=== PATIENT | female | born 1965 | race Caucasian/White ===

== ENCOUNTER 2017-01-29 09:30 | Inpatient (IN) | payer MEDICAID, OTHER ==
--- NOTE | 2017-02-09 20:46 | HP ---
H&P (Free Text) History and Physical: PROCEDURE: Left knee medial compartment arthroplasty. Date of Procedure: 02/19/2017 Physician: Dr. Tae Acevedo CC: Left knee pain. HPI: The patient is a very pleasant 51-year-old female who presents today for history and physical examination prior to undergoing surgery with Dr. Acevedo. In brief, the patient has been suffering from left knee pain due to osteoarthritis for quite some time, and has failed conservative treatment such as nonsteroidal medication. She has elected to undergo a left knee medial compartment arthroplasty by Dr. Justin Acevedo on 02/19/2017. PAST MEDICAL HISTORY: 1) Diabetes type 2. 2) Chronic bronchiolitis. 3) COPD. 4) Hypertension. 5) Elevated cholesterol. 6) Thyroid disease. 7) L5-S1 disk herniation. PAST SURGICAL HISTORY: 1) Tonsils and adenoids. 2) x2. 3) Partial hysterectomy. 4) Appendectomy. 5) Incision and drainage as a child. MEDICATIONS: 1) Lisinopril 20 mg one tablet by mouth daily. 2) Simvastatin 20 mg one tablet by mouth q.h.s. 3) Glipizide 10 mg one tablet by mouth twice daily. 4) Metformin, unknown dosage. 5) Motrin p.r.n. 6) Benadryl p.r.n. 7) Levothyroxine 100 mcg one tablet by mouth daily. 8) Respimat 20/100 mcg/ACT one puff four to six times as needed. 9) Nebulizer p.r.n. ALLERGIES: Penicillin, with a history of "lungs filling with fluid." FAMILY HISTORY: Mother with heart disease and epilepsy. SOCIAL HISTORY: Currently living with her in a home with only one floor. Positive for tobacco use, approximately one pack per day. Negative for alcohol use. ROS: GENERAL: Negative for fevers, chills, night sweats. No history of anesthesia problems. HEENT: Negative for headache, lightheadedness, or syncopal episodes. INTEGUMENT: Negative for abrasions, lesions, open wounds or sores. CARDIOTHORACIC: Negative for chest pain, palpitations, or edema. Positive for hypertension. PULMONARY: Positive for chronic cough. Positive for COPD. GI: Negative for nausea, vomiting, constipation, or GERD. : Negative for nocturia, urinary frequency or urgency, history of UTIs or kidney problems. MUSCULOSKELETAL: Positive for chronic back pain with L5 disk herniation. Positive for left knee pain. NEUROLOGIC: Positive for left leg paresthesias. No history of seizure, stroke or epilepsy. ENDOCRINE: Positive for diabetes. Positive for thyroid disease. HEMATOLOGIC: Negative for easy bruising or anemia. No history of excessive bleeding. No history of DVTs or PE. INFECTIOUS DISEASE: Negative for MRSA, hepatitis or HIV. Vitals: Ht: 61.5" Wt: 200lb Pulse: 80 BP: 163/81 Resp: 17 T: 98.1 Pain Level: 7 BMI: 37.2 PHYSICAL EXAM: GENERAL: Well-appearing, in no acute distress, alert and oriented female appearing older than stated age. HEENT: Normocephalic, atraumatic. EOMI. NECK: Supple. CARDIAC: Regular rate and rhythm. No murmurs, gallops or rubs. No edema bilaterally in lower extremities. PULMONARY: Lungs clear to auscultation bilaterally. No crackles or rhonchi. Minimal wheezing at the lower lobes. ABDOMEN: Soft, nontender, nondistended. Positive obesity. Positive normoactive bowel sounds. Negative CVA tenderness bilaterally. NEUROLOGIC: Alert and oriented x3. Cranial nerves grossly intact. Sensation intact to light touch in bilateral lower extremities; however, with decreased sensation on the left distal to the calf. MUSCULOSKELETAL: Dorsalis pedis pulses 2+ bilaterally. Left leg with range of motion 0-120. No skin breakdown noted. No wounds or open sores. STUDIES: Last x-rays performed at [facility] on 11/14/2016. ASSESSMENT: The patient is a very pleasant 51-year-old female who presents today for history and physical examination prior to undergoing surgery with Dr. Acevedo. The risks and benefits associated with the procedure were discussed with the patient at length, and she signed the surgical risks and complications form. Medications of Colace, Coumadin and Percocet will be sent to the patient' s pharmacy for her to filler picker preoperatively. She had no further questions or concerns. She will be following up with her primary doctor on 02/15/2017 for her preoperative clearance, and will be seen at [facility] today.
[2017-02-19] MEDS ORDERED: Buffered Lidocaine 1% SYRIN* 3 ML/SYR SYRINGE INTRADERM ONE (06:00)
[2017-02-19] MEDS ORDERED: Famotidine IV* 10 MG/ML 2 ML (20 mg) IV ONE (06:00)
[2017-02-19] MEDS ORDERED: Dexamethasone IV* 4 MG/ML 1 ML (4 MG) IV SLOW PU ONE (06:00)
[2017-02-19] MEDS ORDERED: Morphine PF AMP (0.5MG/ML)* 5 MG/10 ML AMP ONE (08:08)
[2017-02-19] MEDS ORDERED: Midazolam* 1 MG/ML 5 ML VIAL (5 MG) ONE (08:08)
[2017-02-19] MEDS ORDERED: fentaNYL* 50 MCG/ML 2 ML VIAL (100 MCG VIAL) ONE ×2 (08:08→13:05)
[2017-02-19] MEDS ORDERED: HYDROmorphone* 1 MG/ML 1 ML SYR ONE ×3 (08:08→11:48)
[2017-02-19] MEDS ORDERED: Propofol* 10 MG/ML 20 ML BTL IV PUSH ONE ×2 (08:12→12:39)
[2017-02-19] MEDS ORDERED: Dexmedetomidine* 200 MCG/2 ML 2 ML VIAL ONE (08:12)
[2017-02-19] MEDS ORDERED: Bupivacaine 0.5% SDV PF* 30 ML VIAL ONE (08:12)
[2017-02-19] MEDS ORDERED: Famotidine IV* 10 MG/ML 2 ML (20 mg) ONE (08:26)
[2017-02-19] MEDS ORDERED: Clindamycin 900 MG IVPREMIX(* 900 MG/50 ML SDV IV ONE (08:26)
[2017-02-19] MEDS ORDERED: Dexamethasone IV* 4 MG/ML 1 ML (4 MG) ONE (08:26)
[2017-02-19] MEDS ORDERED: Levalbuterol 1.25MG/0.5ML NEB ONE ×2 (10:29→13:21)
[2017-02-19] MEDS ORDERED: PROCHLORPERAZINE INJ 5 MG/ML 2 ML VIAL IV PRN ×2 (10:32→12:34)
[2017-02-19] MEDS ORDERED: Levalbuterol 0.63MG/3ML NEB INH PRN (10:32)
[2017-02-19] MEDS ORDERED: Ondansetron INJ* 2 MG/ML VIAL IV PRN ×2 (10:32→12:34)
[2017-02-19] MEDS ORDERED: fentaNYL* 50 MCG/ML 2 ML VIAL (100 MCG VIAL) IV PRN (10:32)
[2017-02-19] MEDS ORDERED: Scopolamine 1.5 mg* PATCH TRANSDERM PRN ×2 (10:32→12:34)
[2017-02-19] MEDS ORDERED: DiMENhydriNATE IV* 50 MG/ML VIAL IV PUSH PRN ×2 (10:32→12:34)
[2017-02-19] MEDS ORDERED: Levalbuterol HFA INHALER* 1 PUFF MDI ONE (11:34)
[2017-02-19] MEDS ORDERED: Meperidine SYRINGE* 50 MG/ML ONE (11:48)
[2017-02-19] MEDS ORDERED: diPHENhydraMINE IV* 50 MG/ML 1 ml VIAL (BENADRYL) IV PRN (12:34)
[2017-02-19] MEDS ORDERED: Naloxone* 0.4 MG/ML 1 ML VIAL IV PRN (12:34)
[2017-02-19] MEDS ORDERED: Nalbuphine* 20 MG/ML 1 ML VIAL IV PRN (12:34)
[2017-02-19] MEDS ORDERED: Acetaminophen TAB* 325 MG PO PRN (13:09)
[2017-02-19] MEDS ORDERED: Bisacodyl SUPP* 10 MG SUPP PR PRN (13:15)
[2017-02-19] MEDS ORDERED: LACTULOSE* 30 ML UDC PO PRN (13:15)
[2017-02-19] MEDS ORDERED: Polyethylene Glycol 3350* 17 GM PACKET PO PRN (13:15)
--- NOTE | 2017-02-19 14:14 | RAD ---
INDICATION: Left medial knee replacement surgery. COMPARISON: There are no prior studies available for comparison. TECHNIQUE: 2 views of the left knee were obtained. FINDINGS: The patient is status post knee replacement surgery. There are prosthesis noted in the medial compartment of the knee. The bones are normal alignment. There is air within the joint space and adjacent soft tissues consistent with the patient's recent surgery. Multiple surgical jesse are present anterior. Joint spaces appear maintained. IMPRESSION: STATUS POST PARTIAL KNEE REPLACEMENT SURGERY.
[2017-02-19] MEDS ORDERED: Dextrose 50% Syringe 50 ML* 25 GM/50 ML SYRINGE IV PUSH PRN (14:18)
[2017-02-19] MEDS ORDERED: Albuterol 2.5 MG/3 ML NEB.SOL* (0.083%) INH PRN (14:23)
[2017-02-19] MEDS ORDERED: Albuterol/Ipratropium NEB.SOL* Albuterol 2.5 MG/Ipratropium 0.5 MG 3 ML INH SCH (15:00)
[2017-02-19] MEDS ORDERED: Nicotine PATCH 21 MG/24 HR* PATCH TRANSDERM SCH (15:00)
[2017-02-19] MEDS ORDERED: Nicotine PATCH 21 MG/24 HR* PATCH ONE (16:28)
[2017-02-19] MEDS ORDERED: Warfarin TAB(*) 4 MG PO ONE (17:00)
[2017-02-19] MEDS ORDERED: Albuterol/Ipratropium RESP(NF) MDI (Combivent Respimat) INH SCH (17:00)
[2017-02-19] MEDS: Nicotine PATCH 21 MG/24 HR* PATCH TRANSDERM SCH (17:31)
[2017-02-19] MEDS: Atorvastatin* 10 MG TAB PO SCH (17:53)
[2017-02-19] MEDS: Insulin LISPRO* 1 UNITS UNIT SUBCUT SCH (17:54)
[2017-02-19] MEDS: Clindamycin 600 MG IVPREMIX(* 600 MG/50 ML SDV IV SCH (18:19)
[2017-02-19] MEDS: oxyCODONE/Acetamin 5/325 MG* TAB PO PRN ×2 (19:40→23:18)
[2017-02-19] MEDS ORDERED: Mometasone/Formoter 200/5 MDI INH SCH (21:00)
[2017-02-19] MEDS: Magnesium Hydroxide LIQ* 30 ML UDC PO SCH (21:38)
[2017-02-19] MEDS: Nicotine Patch Removal NOTE FOLLOW UP SCH (21:38)
[2017-02-19] MEDS: Cyclobenzaprine TAB* 10 MG PO SCH (21:38)
[2017-02-19] MEDS: Docusate CAP* 100 MG PO SCH (21:38)
--- NOTE | 2017-02-19 22:17 | CONS ---
CONSULTATION REPORT: DATE OF CONSULT: 02/19/17 PRIMARY CARE PROVIDER: Dr. Rees. REQUESTING PHYSICIAN FOR CONSULTATION: Dr. Acevedo. REASON FOR MEDICAL CONSULTATION: Medical management of comorbid medical condition. HISTORY OF PRESENT ILLNESS: I refer you to Dr. Acevedo's H and P for further details. In short, Mrs. Jonas is a 51-year-old female patient. She carries a history of GARDENIA, diabetes, COPD, hypertension, hyperlipidemia, hypothyroidism, L5-S1 disk herniation, and neuropathy. She comes in to the orthopedic service today for an elective partial knee replacement. She has been suffering from left knee pain due to osteoarthritis for sometime. She has had failed conservative therapy and she had elected to undergo a left medial compartment arthroplasty with Dr. Acevedo today. She underwent the procedure and the hospitalist service was asked to evaluate postoperatively. She was evaluated in the PACU. She is sitting up on the edge of the bed. She says that she is feeling well. She says she feels hungry and thirsty. She denies having any chest pain. She denies feeling lightheaded. Denies feeling like she is going to faint. She denies having any abdominal discomfort. No chest pain, no shortness of breath. She does state that she cannot move her legs as of yet and has no sensation in her lower extremities. She did receive a spinal. The patient says that her pain otherwise is well controlled. Because of her medical complexity, we were asked to evaluate in consult. PAST MEDICAL HISTORY: Significant for: 1. Diabetes mellitus. 2. COPD. 3. Hypertension. 4. Hyperlipidemia. 5. Hypothyroidism. 6. L5-S1 disk herniation. 7. Neuropathy. PAST SURGICAL HISTORY: 1. She has had a tonsillectomy. 2. Appendectomy. 3. x2. 4. Hysterectomy. HOME MEDICATIONS: According to the list that was provided to us include: 1. Tramadol 50 mg at bedtime as needed. 2. Metformin 500 mg daily. 3. Zocor 40 mg daily. 4. Lisinopril 20 mg daily. 5. Synthroid 50 mg daily. 6. Glipizide 10 mg daily. 7. Prozac 80 mg daily. 8. Flexeril 10 mg at bedtime. 9. Combivent 1 to 2 puffs inhaled 4 times a day. ALLERGIES TO MEDICATIONS: Include PENICILLIN. FAMILY HISTORY: Her mother had a history of a blood clot and diet at the age of 35. Father had a history of cancer, also . SOCIAL HISTORY: She is a pack a day smoker for about 40 years. She does not drink alcohol. Surrogate decision maker is her . REVIEW OF SYSTEMS: There is no documented fever. She denied having any significant weight change. There was no double vision. There is no ear discharge. There is no rhinorrhea, no sore throat, no thyroid enlargement. Denied having any chest pain. There is no orthopnea and no nocturnal dyspnea. There is no abdominal pain. No nausea, no vomiting, no dysuria. No frequency, no seizure, no loss of consciousness, no pruritus, no skin ulcerations. Review of 14 systems completed, all others negative. PHYSICAL EXAM: Reveals vital signs, blood pressure of 95/54 with a pulse 68, respirations 21, O2 sat 98%, temperature 97.3. General: At this time, Mrs. Jonas is a 51-year-old female patient. She is sitting in the PACU bed. She does not appear to be in any acute distress. HEENT: Head is atraumatic and normocephalic. Eyes: EOMs intact. Sclerae anicteric and not pale. Neck: Supple. Throat: Oral mucosa appears to be moist. No oropharyngeal erythema. Heart: Sounds S1 and S2, regular rate and rhythm. No murmurs, rubs, or gallops. Lungs: She did have some coarse breath sounds in the upper lobes. No rales were noted. She had equal diaphragmatic expansion. Abdomen was soft, it was flat and nontender. Bowel sounds hypoactive. Extremities: Pulses 2+ throughout. She can move the upper extremities with 5/5 strength. Her lower extremity, again because of the spinal, she at this point has no movement, no sensation. She does have 2+ pulses throughout and she has no peripheral edema. Neurologically, she is awake, alert, and oriented x3. Her speech is clear. Her tongue is midline. She had no gross focal deficits. Her skin is intact with the exception to the left knee, she does have an incision, which is covered with an Clark dressing. It is clean, dry, and intact. DIAGNOSTIC STUDIES/LAB DATA: Her labs from preop revealed a urine culture that was negative. She has a sodium of 134, potassium 4.2, chloride 99, bicarb 30, BUN 17, creatinine 0.52, glucose 64. AST 10, ALT 12. INR was 0.8. The hemoglobin was 12.9, hematocrit 39, WBC 10.9, platelet count 302. Urinalysis was negative. She had a preop chest x-ray, which showed no active disease. Preop EKG shows a normal sinus rhythm, rate of 67, no ST elevations or T-wave inversions. Old medical records were reviewed. ASSESSMENT AND PLAN: Mrs. Jonas is a 51-year-old female patient coming into the orthopedic service today for an elective left partial knee replacement. We were asked to evaluate in consult. My recommendations at this point are: 1. Status post partial knee replacement. At this point, I will defer management to Dr. Acevedo and his team. 2. Diabetes. We will go ahead and put her on a lispro sliding scale. 3. Chronic obstructive pulmonary disease. At this point, we will need to work with aggressive pulmonary toileting. I am going to put her on q.4 hours while awake DuoNebs and p.r.n. albuterol. She takes Combivent 1 to 2 puffs 4 times a day, so when she is improving, we will get her back on her baseline medications. 4. Hypertension. Her blood pressure is here in the 90 systolically, probably from the spinal. We will hold her meds and restart when able. 5. Hyperlipidemia. Continue with statin therapy. 6. Hypothyroidism. Continue her Synthroid. 7. L5-S1 diskectomy. Follow with her primary. Not an active issue currently. 8. Neuropathy. Continue current medical regimen. 9. History of obstructive sleep apnea. She does not wear a mask at night so I think for the initial 24 hours would like to continue with pulse ox overnight to monitor her. 10. DVT prophylaxis. We will defer to the primary team. 11. Code status, full code. 12. Fluids, electrolytes, and nutrition. She can have consistent carb diet. TIME SPENT: Time spent on the consult 60 minutes, greater than half the time spent [id number] with the patient obtaining my history and physical. Other half the time spent going over the plan of care with the patient and implementing the plan of care. I did discuss the plan of care with my attending, Dr. Lo. She is in agreement. ZANE BUSTILLOS NP CC: Magda Greenberg; Dr. Acevedo * [id number]/CPS #: [id number] [facility]
[2017-02-20] MEDS: Clindamycin 600 MG IVPREMIX(* 600 MG/50 ML SDV IV SCH ×2 (00:41→08:35)
[2017-02-20] MEDS: oxyCODONE/Acetamin 5/325 MG* TAB PO PRN (02:35)
[2017-02-20] MEDS ORDERED: diPHENhydraMINE IV* 50 MG/ML 1 ml VIAL (BENADRYL) IV PRN (03:00)
[2017-02-20] MEDS ORDERED: Ondansetron TAB* 4 MG PO PRN (03:00)
[2017-02-20] MEDS ORDERED: Ondansetron INJ* 2 MG/ML VIAL IV PRN (03:00)
[2017-02-20] MEDS: Morphine INJ* 10 MG/ML 1 ML SYRINGE IV PRN ×6 (03:04→21:21)
[2017-02-20] MEDS: diPHENhydraMINE PO* 25 MG PO PRN ×2 (03:05→21:19)
--- NOTE | 2017-02-20 03:21 | OP ---
DATE OF OPERATION: 02/19/17 - ROOM #346 DATE OF : 61 SURGEON: Justin Acevedo MD ASSISTANTS: 1. Mini Xiong RPA 2. Flakita Mccabe RPA ANESTHESIOLOGIST: Robert Carrasco MD ANESTHESIA: Regional/spinal/sedation. PRE-OP DIAGNOSIS: Osteoarthritis, left knee. POST-OP DIAGNOSIS: Osteoarthritis, left knee. OPERATIVE PROCEDURE: 1. Left knee medical compartment arthroplasty. 2. Patelloplasty. ESTIMATED BLOOD LOSS: Less than 100 cc. COMPLICATIONS: None. HARDWARE: Repicci II, 48 mm femur, 32 x 6.5 mm tibia. INDICATIONS: Ms. Jonas is a 51-year-old female who has a long history of left knee pain. She had small spurs by x-ray, but x-rays were not at all impressive, but an MRI showed essentially complete loss of the cartilage in the medial compartment of her left knee. There was some damage in the patellofemoral compartment, but her main complaint was with weightbearing and medial knee pain. She had been through conservative treatment and I discussed with her that a partial knee arthroplasty should work well to decrease her pain and improve her function. Risks of surgery such as continued pain, scar formation, stiffness, DVT, pulmonary embolism and need to revise to a full knee replacement were some of the risks discussed. She had been declared medically optimized and wished to proceed. DESCRIPTION OF PROCEDURE: The patient was brought to the OR and after a block had been placed in the holding area, spinal anesthesia was introduced. Ag catheter and a tourniquet was placed. Mini Xiong was present for positioning, approach, implantation as well as closure and she was instrumental for the case. It could not have been done without her. Left knee was prepped and then draped. Esmarch was used to exsanguinate the leg and the tourniquet was raised. Midline incision was made coming just to the medial side of the tibial tubercle coming a little bit on towards the medial side of the patella as well. Incision was carried down through skin and subcutaneous fat. Small bleeders encountered were ligated using electrocautery. Extensor mechanism was exposed and a sharp parapatellar arthrotomy was made. Care was taken to not just plunge through proximally in the areas of the intertrochlear notch. Medial side of the fat pad was sharply excised. It could be seen where she was specifically worn on the weightbearing surface of the distal femur. Small sagittal saw was used to resect the posterior condyle and approximately 7 to 8 mm was taken with this. A small corner of the patella was also taken. So, patelloplasty was also performed. This way, the spurs would not catch towards the medial side on the medial femoral condyle. Meniscus was then sharply excised and a 4 mm robin was used to create a recess in the proximal tibia for the tibial component. Coming back and forth frequently to adjust the depths and to make sure that I was not going too deep, the area was burred out. Once I thought that I had a nice recess, attention was turned to the tibia. Femur was sized and the 48 seemed to fit best. Spurs were rongeured off the medial side of the tibia and medial side of the femur and an outline was made and the robin was used to create a recess for the femoral component as well. Once the recess appeared to be adequate, femoral guide was impacted and then pinned into place. Doa hole was then drilled. Guide was removed and trial was then placed. It could be seen where I needed to impact a little bit more proximally to make the transition smooth from the intracondylar notch to the medial femoral condyle. Once this was smooth, however, this looked quite good. Sliding the tibia in however was quite difficult and tibia was then recessed a little bit more. Tibial trial was then placed and she seemed to go quite nicely. The knee came smoothly into the flexion and extension and she had a little bit of wobble to the knee, so I do not believe that she was over-stuffed on the medial side. She was in valgus before surgery and still was in valgus with the trial components in. Trial instrumentation was removed and the knee was copiously pulse lavaged. Cement was being prepared. Tibia and femur were both cemented into place and excess cement was removed. Cement was allowed to harden and once the cement had hardened, osteotome was used to remove some of the extruded cement from the femoral side. With flexion and extension, the femoral component tracked nicely on the tibia. She had that same little bit of play. Patella also seemed to track quite nicely. The knee was again copiously pulse lavaged and parapatellar arthrotomy was repaired using interrupted #1 Vicryl sutures. Tourniquet was let down and no significant bleeding was encountered. Subcutaneous tissues were reapproximated with 2-0 Vicryl and skin was closed using jesse and sterile dressing and Cryo/Cuff was applied in the OR. The patient was then awake and stable on transfer to the recovery room. [id number]/CPS #: [id number] [facility]
[2017-02-20 05:57] LABS: Hematocrit 34 % (35-47); Hemoglobin 11.1 g/dl (12.0-16.0)
[2017-02-20] MEDS: oxyCODONE TAB* 5 MG TAB PO PRN ×5 (06:01→23:09)
[2017-02-20] MEDS: Levothyroxine TAB* 50 MCG TAB PO SCH (06:01)
[2017-02-20 06:08] LABS: BUN/Creatinine Ratio 26.5 (8-20); Calcium 8.8 mg/dL (8.6-10.3); EGFR African American 169.9 (>60); EGFR Non-African American 132.1 (>60); Potassium 4.3 mmol/L (3.5-5.0)
[2017-02-20] MEDS: Magnesium Hydroxide LIQ* 30 ML UDC PO SCH ×2 (08:34→21:11)
[2017-02-20] MEDS: FLUoxetine CAP* 20 MG PO SCH (08:34)
[2017-02-20] MEDS: Docusate CAP* 100 MG PO SCH ×2 (08:34→21:11)
[2017-02-20] MEDS: Insulin LISPRO* 1 UNITS UNIT SUBCUT SCH ×3 (08:35→17:58)
[2017-02-20] MEDS: Nicotine PATCH 21 MG/24 HR* PATCH TRANSDERM SCH (08:36)
[2017-02-20] MEDS ORDERED: NON FORMULARY MED* (Lisinopril [Prinivil Tab 20 Mg] 20 MG) PO SCH (09:00)
[2017-02-20] MEDS ORDERED: GLIPIZIDE 10 MG PO SCH (09:00)
[2017-02-20] MEDS ORDERED: metFORMIN* 500 MG TAB PO SCH (09:00)
--- NOTE | 2017-02-20 09:12 | PN ---
Progress Note - Progress Note SOAP: Subjective: []Patient seen OOB in chair. c/o of mild numbness medial distal left ankle, denies foot weakness. Denies SOB or CP or dizziness. Cough better. Nebulizer is ordered for today. Objective: [] Vital Signs Temp 98.2 F 02/20/17 07:34 Pulse 78 02/20/17 09:06 Resp 16 02/20/17 09:06 BP 133/71 02/20/17 07:34 Pulse Ox 100 02/20/17 07:34 Intake & Output 02/19/17 02/20/17 02/20/17 18:59 06:59 18:59 Intake Total 2340 2473 Output Total 500 2600 1100 Balance 1840 -127 -1100 Weight 217 lb Intake: IV Fluids 1900 827 LR 1900 827 IVPB 106 Cleocin 106 Oral 440 1540 Output: Ag 500 2600 1100 Laboratory Results - last 24 hr 02/19/17 02/19/17 02/20/17 08:47 17:37 05:07 Hgb Hct INR (Anticoag Therapy) Sodium 130 L Potassium 4.3 Chloride 100 L Carbon Dioxide 25 Anion Gap 5 BUN 13 Creatinine 0.49 L Est GFR ( Amer) 169.9 Est GFR (Non-Af Amer) 132.1 BUN/Creatinine Ratio 26.5 H Glucose 135 H POC Glucose (mg/dL) 171 H 259 H Calcium 8.8 02/20/17 02/20/17 05:08 05:08 Hgb 11.1 L Hct 34 L INR (Anticoag Therapy) 0.94 Sodium Potassium Chloride Carbon Dioxide Anion Gap BUN Creatinine Est GFR ( Amer) Est GFR (Non-Af Amer) BUN/Creatinine Ratio Glucose POC Glucose (mg/dL) Calcium Left knee JERRICA is dry and intact calf NT and soft active DF/PF left ankle mild paresthesia medial distal ankle Assessment: []s/p left medial partial knee replacement POD #1 Plan: []PT/OT WBAT LLE Coumadin w heparin bridge 8 mg today Home
--- NOTE | 2017-02-20 11:59 | PN ---
Subjective Date of Service: 02/20/17 Interval History: This is a 51 yo female with an extensive medical hx who presented for an elective partial R knee replacement. Hospitalist group is following for management of chronic medical conditions. Patient reports no acute complaints this am apart from R knee pain. Denies SOB , CP, abd pain, n/v. Objective Active Medications: Acetaminophen (Tylenol Tab*) 650 mg PO Q4H PRN PRN Reason: mild pain or fever Albuterol (Ventolin 2.5 Mg/3 Ml Neb.May*) 2.5 mg INH Q2H PRN PRN Reason: SOB/WHEEZING Last Admin: 02/20/17 09:00 Dose: 2.5 mg Atorvastatin Calcium (Lipitor*) 10 mg PO QPM [facility] Last Admin: 02/19/17 17:53 Dose: 10 mg Bisacodyl (Dulcolax Supp*) 10 mg SD DAILY PRN PRN Reason: constipation Cyclobenzaprine HCl (Flexeril Tab*) 10 mg PO BEDTIME [facility] Last Admin: 02/19/17 21:38 Dose: 10 mg Dextrose (D50w Syringe 50 Ml*) 12.5 gm IV PUSH .FOR FS < 60 - SS PRN PRN Reason: FS < 60 Diphenhydramine HCl (Benadryl Iv*) 12.5 mg IV Q6H PRN PRN Reason: PRURITIS Diphenhydramine HCl (Benadryl Po*) 25 mg PO Q6H PRN PRN Reason: INSOMNIA Last Admin: 02/20/17 03:05 Dose: 25 mg Docusate Sodium (Colace Cap*) 100 mg PO BID [facility] Last Admin: 02/20/17 08:34 Dose: 100 mg Fluoxetine HCl (Prozac Cap*) 80 mg PO DAILY [facility] Last Admin: 02/20/17 08:34 Dose: 80 mg Heparin Sodium (Porcine) (Heparin Vial(*)) 5,000 units SUBCUT Q8HR [facility] Lactated Ringer's (Lactated Ringers 1000 Ml Bag*) 1,000 mls @ 100 mls/hr IV PER RATE [facility] Last Admin: 02/20/17 02:36 Dose: 100 mls/hr Insulin Human Lispro (Humalog*) 0 units SUBCUT AC [facility] PRN Reason: Protocol Last Admin: 02/20/17 08:35 Dose: 2 units Lactulose (Lactulose*) 30 ml PO Q6H PRN PRN Reason: constipation Levothyroxine Sodium (Synthroid Tab*) 50 mcg PO 0600 [facility] Last Admin: 02/20/17 06:01 Dose: 50 mcg Magnesium Hydroxide (Milk Of Magnesia Liq*) 30 ml PO BID [facility] Last Admin: 02/20/17 08:34 Dose: 30 ml Morphine Sulfate (Morphine Inj (Syringe)*) 5 mg IV Q2H PRN PRN Reason: PAIN Last Admin: 02/20/17 08:34 Dose: 5 mg Nicotine (Nicotine Patch 21 Mg/24 Hr*) 1 patch TRANSDERM 0800 [facility] Last Admin: 02/20/17 08:36 Dose: 1 patch Ondansetron HCl (Zofran Inj*) 4 mg IV Q6H PRN PRN Reason: nausea Ondansetron HCl (Zofran Tab*) 4 mg PO Q6H PRN PRN Reason: NAUSEA Oxycodone HCl (Roxycodone Tab*) 10 mg PO Q4H PRN PRN Reason: breakthrough pain Last Admin: 02/20/17 10:35 Dose: 10 mg Oxycodone/Acetaminophen (Percocet 5/325 Tab*) 1 tab PO Q3H PRN PRN Reason: PAIN - MODERATE Pharmacy Profile Note (Scopolomine Patch Remove*) 1 note PATCH OFF Q72H PRN PRN Reason: nausea Pharmacy Profile Note (Nicotine Patch Removal Note*) 1 note FOLLOW UP 2100 [facility] Last Admin: 02/19/17 21:38 Dose: 1 note Pharmacy Profile Note (Coumadin Daily Reminder*) 0 note FOLLOW UP 1700 [facility] Polyethylene Glycol/Electrolytes (Miralax*) 17 gm PO DAILY PRN PRN Reason: Constipation Scopolamine (Transderm-Scop 1.5 Mg Patch*) 1 patch TRANSDERM Q72H PRN PRN Reason: nausea Warfarin Sodium (Coumadin Tab(*)) 8 mg PO ONCE@1700 ONE PRN Reason: Protocol Stop: 02/20/17 17:01 Vital Signs: Temp Pulse Resp BP Pulse Ox 98.2 F 78 16 133/71 100 02/20/17 07:34 02/20/17 09:06 02/20/17 10:35 02/20/17 07:34 02/20/17 08:00 Appearance: Well appearing, in NAD Respiratory: Symmetrical Chest Expansion and Respiratory Effort, - - faint wheeze, no rhonchi or crackles Cardiovascular: NL Sounds; No Murmurs; No JVD, RRR Extremities: - - trace bilateral LE edema Skin: No Rash or Ulcers Neurological: Alert and Oriented x 3 Result Diagrams: 02/20/17 05:08 02/20/17 05:07 Assess/Plan/Problems-Billing Assessment: This is a 51 yo female with GARDENIA non-compliant with CPAP, COPD, DM, HTN, HLD, hypothyroidism and prior lumbar disc herniation with chronic neuropathy who underwent elective partial R knee replacement with Dr Acevedo 02/19. Hospitalist group has been consulted for medical co-management - Patient Problems (1) Status post right partial knee replacement Comment: POD #1 management per ortho (2) COPD (chronic obstructive pulmonary disease) Comment: No acute exacerbation Cont home inhaled therapy (3) GARDENIA (obstructive sleep apnea) Comment: Non-compliant with CPAP (4) Diabetes Comment: Non-insulin dependent Holding metformin/glipizide post-op Manage with SS Humalog (5) HTN (hypertension) Comment: Normotensive Plan to resume lisinopril tomorrow am (6) HLD (hyperlipidemia) (7) Hypothyroidism Comment: Cont levothyroxine (8) Lumbar radiculopathy Comment: Cont prn flexeril (9) DVT prophylaxis Comment: Lovenox bridge to Coumadin per ortho Status and Disposition: Discharge planning per ortho. No acute medical concerns. Hospitalists will cont to follow
[2017-02-20] MEDS ORDERED: Warfarin TAB(*) 4 MG PO ONE (17:00)
[2017-02-20] MEDS: Atorvastatin* 10 MG TAB PO SCH (17:47)
[2017-02-20] MEDS: Cyclobenzaprine TAB* 10 MG PO SCH (21:11)
[2017-02-20] MEDS: Heparin VIAL(*) 5000 UNITS/ML VIAL (FIVE THOUSAND) SUBCUT SCH (21:13)
[2017-02-20] MEDS: Nicotine Patch Removal NOTE FOLLOW UP SCH (21:13)
[2017-02-21] MEDS: Morphine INJ* 10 MG/ML 1 ML SYRINGE IV PRN ×6 (01:34→23:41)
[2017-02-21] MEDS: oxyCODONE TAB* 5 MG TAB PO PRN ×5 (03:54→22:34)
[2017-02-21] MEDS: Levothyroxine TAB* 50 MCG TAB PO SCH (05:44)
[2017-02-21] MEDS: Heparin VIAL(*) 5000 UNITS/ML VIAL (FIVE THOUSAND) SUBCUT SCH ×3 (05:46→22:36)
[2017-02-21 05:50] LABS: Hematocrit 35 % (35-47); Hemoglobin 11.8 g/dl (12.0-16.0)
[2017-02-21] MEDS: oxyCODONE/Acetamin 5/325 MG* TAB PO PRN (07:21)
[2017-02-21] MEDS: Insulin LISPRO* 1 UNITS UNIT SUBCUT SCH ×3 (07:22→17:42)
[2017-02-21] MEDS: Nicotine PATCH 21 MG/24 HR* PATCH TRANSDERM SCH (08:46)
[2017-02-21] MEDS: Lisinopril TAB* 10 MG PO SCH (08:47)
[2017-02-21] MEDS: Magnesium Hydroxide LIQ* 30 ML UDC PO SCH ×2 (08:47→21:27)
[2017-02-21] MEDS: Docusate CAP* 100 MG PO SCH ×2 (08:47→21:23)
[2017-02-21] MEDS: FLUoxetine CAP* 20 MG PO SCH (09:19)
--- NOTE | 2017-02-21 12:14 | PN ---
Subjective Date of Service: 02/21/17 Interval History: Patient offers no acute complaints. No cough, SOB, abdominal pain, n/v. Pain control is adequate. Objective Active Medications: Acetaminophen (Tylenol Tab*) 650 mg PO Q4H PRN PRN Reason: mild pain or fever Albuterol (Ventolin 2.5 Mg/3 Ml Neb.May*) 2.5 mg INH Q2H PRN PRN Reason: SOB/WHEEZING Last Admin: 02/20/17 09:00 Dose: 2.5 mg Atorvastatin Calcium (Lipitor*) 10 mg PO QPM [facility] Last Admin: 02/20/17 17:47 Dose: 10 mg Bisacodyl (Dulcolax Supp*) 10 mg DC DAILY PRN PRN Reason: constipation Cyclobenzaprine HCl (Flexeril Tab*) 10 mg PO BEDTIME [facility] Last Admin: 02/20/17 21:11 Dose: 10 mg Dextrose (D50w Syringe 50 Ml*) 12.5 gm IV PUSH .FOR FS < 60 - SS PRN PRN Reason: FS < 60 Diphenhydramine HCl (Benadryl Iv*) 12.5 mg IV Q6H PRN PRN Reason: PRURITIS Diphenhydramine HCl (Benadryl Po*) 25 mg PO Q6H PRN PRN Reason: INSOMNIA Last Admin: 02/20/17 21:19 Dose: 25 mg Docusate Sodium (Colace Cap*) 100 mg PO BID [facility] Last Admin: 02/21/17 08:47 Dose: 100 mg Fluoxetine HCl (Prozac Cap*) 80 mg PO DAILY [facility] Last Admin: 02/21/17 09:19 Dose: 80 mg Heparin Sodium (Porcine) (Heparin Vial(*)) 5,000 units SUBCUT Q8HR [facility] Last Admin: 02/21/17 05:46 Dose: 5,000 units Lactated Ringer's (Lactated Ringers 1000 Ml Bag*) 1,000 mls @ 100 mls/hr IV PER RATE [facility] Last Admin: 02/20/17 02:36 Dose: 100 mls/hr Insulin Human Lispro (Humalog*) 0 units SUBCUT AC [facility] PRN Reason: Protocol Last Admin: 02/21/17 07:22 Dose: Not Given Lactulose (Lactulose*) 30 ml PO Q6H PRN PRN Reason: constipation Levothyroxine Sodium (Synthroid Tab*) 50 mcg PO 0600 [facility] Last Admin: 02/21/17 05:44 Dose: 50 mcg Lisinopril (Prinivil Tab*) 20 mg PO DAILY [facility] Last Admin: 02/21/17 08:47 Dose: 20 mg Magnesium Hydroxide (Milk Of Magnesia Liq*) 30 ml PO BID [facility] Last Admin: 02/21/17 08:47 Dose: 30 ml Morphine Sulfate (Morphine Inj (Syringe)*) 5 mg IV Q2H PRN PRN Reason: PAIN Last Admin: 02/21/17 11:32 Dose: 5 mg Nicotine (Nicotine Patch 21 Mg/24 Hr*) 1 patch TRANSDERM 0800 [facility] Last Admin: 02/21/17 08:46 Dose: 1 patch Ondansetron HCl (Zofran Inj*) 4 mg IV Q6H PRN PRN Reason: nausea Ondansetron HCl (Zofran Tab*) 4 mg PO Q6H PRN PRN Reason: NAUSEA Oxycodone HCl (Roxycodone Tab*) 10 mg PO Q4H PRN PRN Reason: breakthrough pain Last Admin: 02/21/17 08:47 Dose: 10 mg Oxycodone/Acetaminophen (Percocet 5/325 Tab*) 1 tab PO Q3H PRN PRN Reason: PAIN - MODERATE Last Admin: 02/21/17 07:21 Dose: 1 tab Pharmacy Profile Note (Scopolomine Patch Remove*) 1 note PATCH OFF Q72H PRN PRN Reason: nausea Pharmacy Profile Note (Nicotine Patch Removal Note*) 1 note FOLLOW UP 2100 [facility] Last Admin: 02/20/17 21:13 Dose: 1 note Pharmacy Profile Note (Coumadin Daily Reminder*) 0 note FOLLOW UP 1700 [facility] Last Admin: 02/20/17 18:17 Dose: 1 note Polyethylene Glycol/Electrolytes (Miralax*) 17 gm PO DAILY PRN PRN Reason: Constipation Scopolamine (Transderm-Scop 1.5 Mg Patch*) 1 patch TRANSDERM Q72H PRN PRN Reason: nausea Warfarin Sodium (Coumadin Tab(*)) 10 mg PO ONCE@1700 ONE PRN Reason: Protocol Stop: 02/21/17 17:01 Vital Signs: Temp Pulse Resp BP Pulse Ox 97.9 F 70 16 140/75 98 02/21/17 07:33 02/21/17 07:33 02/21/17 11:32 02/21/17 07:33 02/21/17 07:33 Appearance: Well appearing, in NAD Ears/Nose/Mouth/Throat: NL Teeth, Lips, Gums Neck: NL Appearance and Movements; NL JVP Respiratory: Symmetrical Chest Expansion and Respiratory Effort, Clear to Auscultation Cardiovascular: NL Sounds; No Murmurs; No JVD, RRR Extremities: - - trace LE edema Skin: No Rash or Ulcers Neurological: Alert and Oriented x 3 Result Diagrams: 02/21/17 05:20 02/20/17 05:07 Assess/Plan/Problems-Billing Assessment: This is a 51 yo female with GARDENIA non-compliant with CPAP, COPD, DM, HTN, HLD, hypothyroidism and prior lumbar disc herniation with chronic neuropathy who underwent elective partial R knee replacement with Dr Acevedo 02/19. Hospitalist group has been consulted for medical co-management - Patient Problems (1) Status post right partial knee replacement Comment: POD #2 management per ortho (2) COPD (chronic obstructive pulmonary disease) Comment: No acute exacerbation Cont home inhaled therapy (3) GARDENIA (obstructive sleep apnea) Comment: Non-compliant with CPAP (4) Diabetes Comment: Non-insulin dependent Holding metformin/glipizide post-op Manage with SS Humalog (5) HTN (hypertension) Comment: Normotensive Lisinopril has been restarted (6) HLD (hyperlipidemia) (7) Hypothyroidism Comment: Cont levothyroxine (8) Lumbar radiculopathy Comment: Cont prn flexeril (9) DVT prophylaxis Comment: Lovenox bridge to Coumadin per ortho Status and Disposition: Discharge planning per ortho. No acute medical concerns. Hospitalists will cont to follow
[2017-02-21] MEDS ORDERED: Warfarin TAB(*) 10 MG PO ONE (17:00)
[2017-02-21] MEDS: Atorvastatin* 10 MG TAB PO SCH (17:36)
[2017-02-21] MEDS: Cyclobenzaprine TAB* 10 MG PO SCH (21:23)
[2017-02-21] MEDS: Nicotine Patch Removal NOTE FOLLOW UP SCH (21:30)
[2017-02-22] MEDS: oxyCODONE TAB* 5 MG TAB PO PRN ×2 (03:39→08:12)
[2017-02-22 05:44] LABS: Hematocrit 37 % (35-47); Hemoglobin 12.2 g/dl (12.0-16.0)
[2017-02-22] MEDS: Levothyroxine TAB* 50 MCG TAB PO SCH (06:03)
[2017-02-22] MEDS: Heparin VIAL(*) 5000 UNITS/ML VIAL (FIVE THOUSAND) SUBCUT SCH (06:03)
[2017-02-22] MEDS: oxyCODONE/Acetamin 5/325 MG* TAB PO PRN (06:06)
[2017-02-22 07:49] VITALS: BP 145/79
[2017-02-22] MEDS: Magnesium Hydroxide LIQ* 30 ML UDC PO SCH (07:52)
[2017-02-22] MEDS: Insulin LISPRO* 1 UNITS UNIT SUBCUT SCH (07:58)
[2017-02-22] MEDS: FLUoxetine CAP* 20 MG PO SCH (07:59)
[2017-02-22] MEDS: Nicotine PATCH 21 MG/24 HR* PATCH TRANSDERM SCH (07:59)
[2017-02-22] MEDS: Lisinopril TAB* 10 MG PO SCH (08:00)
[2017-02-22] MEDS: Docusate CAP* 100 MG PO SCH (08:00)
--- NOTE | 2017-02-22 09:19 | PN ---
Progress Note - Progress Note SOAP: Subjective: []Patient seen OOB, dressed. Ready to go home. She has her Coumadin, Colace and Percocet Rx already. Objective: [] Vital Signs Temp 97.9 F 02/22/17 07:36 Pulse 86 02/22/17 07:36 Resp 20 02/22/17 08:12 BP 145/79 02/22/17 07:36 Pulse Ox 94 02/22/17 08:00 Intake & Output 02/21/17 02/22/17 02/22/17 18:59 06:59 18:59 Intake Total 920 1465 360 Output Total 800 2450 Balance 120 -985 360 Intake: Oral 920 1465 360 Output: Urine 800 2450 Laboratory Results - last 24 hr 02/21/17 02/22/17 02/22/17 12:15 05:01 05:01 Hgb 12.2 Hct 37 INR (Anticoag Therapy) 1.43 H POC Glucose (mg/dL) 121 H Left knee wound is benign calf NT and soft +DF/PF Assessment: []s/p LTK POD #3 Plan: []Discharge home today w VNS 6mg Coumadin tonight Follow up in 3-[address] Acevedo (has appointment)
[2017-02-22] MEDS ORDERED: Scopolomine PATCH Remove* 1 NOTE MISC PATCH OFF ONE (10:32)
--- NOTE | 2017-02-22 10:34 | DS ---
DATE OF ADMISSION: 02/19/2017. DATE OF DISCHARGE: 02/22/2017. ATTENDING PHYSICIAN: Dr. Justin Acevedo. (dictated by JEFF Abbasi) ADMISSION DIAGNOSES: Osteoarthritis left knee. DISCHARGE DIAGNOSIS: Osteoarthritis left knee. SURGERY PERFORMED: Left knee medial compartment arthroplasty, patelloplasty. HOSPITAL COURSE: The patient is a 51-year-old female with a long-standing history of medial sided left knee pain. Her MRI revealed complete loss of the cartilage in the medial compartment of her left knee. She complained of significant pain with weightbearing in the medial aspect of her knee. She failed conservative management and it was felt that medial compartment knee arthroplasty would be beneficial. She elected to proceed and was taken to the operating room under the care of Dr. Justin Acevedo on the date of 02/19/2017. She tolerated the aforementioned procedure well and left the operating room in stable condition. Postoperatively, she progressed satisfactorily with her physical therapy and occupational therapy goals. She had no acute postoperative complications. She was anticoagulated on Coumadin with a Heparin bridge. She was found to be medically and orthopedically stable for discharge to home on the date of 02/22/17. CONDITION ON DISCHARGE: She is afebrile. Her vital signs are stable. Her left knee incision is healing without evidence of infection. Her calf was soft and nontender. Her neurovascular status is grossly intact. PLAN: Discharge to home with visiting nursing services. She will continue on the Coumadin. She is instructed to take 6 mg of Coumadin today, , February 22; 2 mg February 23; 2 mg February 24; and 2 mg February 25. She is scheduled to have a blood draw on February 26, with subsequent Coumadin dosages to follow. She has her Percocet prescription 5/325, one tablet q.3 hours prn pain and the Colace medication already at home. She has her follow- up appointment scheduled at the end of February at about the three to four week kevin with Dr. Acevedo. Sandra will be removed at about 10 to 12 days postoperatively by visiting home nursing services. The patient was instructed to call the office if she were to develop fever, chills, increased knee pain, redness, warmth, calf swelling or pain. JEFF ABBASI [id number]/[facility] #: [id number] [place]
[2017-02-22] MEDS ORDERED: Scopolomine PATCH Remove* 1 NOTE MISC PATCH OFF PRN (12:34)
--- NOTE | 2017-02-22 15:13 | PN ---
Subjective Date of Service: 02/22/17 Interval History: Patient was discharged by orthopedic service this am. Reviewed nursing notes, labs and vitals from overnight. No concerns. Objective Active Medications: Home Medications Medication Instructions Recorded Confirmed Type Albuterol/Ipratropium RESP(NF) 1 - 2 inhaler INH QID 02/07/17 02/19/17 History [Combivent Respimat (NF)] Cyclobenzaprine TAB* [Flexeril 10 10 mg PO BEDTIME 02/07/17 02/19/17 History MG TAB*] Fluoxetine HCl 80 mg PO DAILY 02/07/17 02/19/17 History Glipizide [Glucotrol] 10 mg PO DAILY 02/07/17 02/19/17 History Levothyroxine TAB* 50 mcg PO DAILY 02/07/17 02/19/17 History Lisinopril [Prinivil TAB 20 mg] 20 mg PO DAILY 02/07/17 02/19/17 History Simvastatin [Zocor 40 MG (NF)] 40 mg PO QPM 02/07/17 02/19/17 History metFORMIN* [Glucophage 500 MG TAB 500 mg PO DAILY 02/07/17 02/19/17 History *] traMADol TAB* [Ultram*] 50 mg PO BEDTIME PRN 02/07/17 02/19/17 History Docusate CAP* [Colace Cap*] 100 mg PO BID cap 02/22/17 Rx oxyCODONE/Acetamin 5/325 MG* 1 tab PO Q3H PRN #0 tab MDD 6 02/22/17 Rx [Percocet 5/325 TAB*] Vital Signs: Temp Pulse Resp BP Pulse Ox 97.9 F 100 16 145/79 96 02/22/17 07:36 02/22/17 11:05 02/22/17 11:05 02/22/17 07:36 02/22/17 11:05 Appearance: Exam not completed Result Diagrams: 02/22/17 05:01 02/20/17 05:07 Assess/Plan/Problems-Billing Assessment: This is a 51 yo female with GARDENIA non-compliant with CPAP, COPD, DM, HTN, HLD, hypothyroidism and prior lumbar disc herniation with chronic neuropathy who underwent elective partial R knee replacement with Dr Acevedo 02/19. Hospitalist group has been consulted for medical co-management - Patient Problems (1) Status post right partial knee replacement Comment: POD #3 discharged per ortho (2) COPD (chronic obstructive pulmonary disease) Comment: No acute exacerbation Cont home inhaled therapy (3) GARDENIA (obstructive sleep apnea) Comment: Non-compliant with CPAP (4) Diabetes Comment: Non-insulin dependent Holding metformin/glipizide post-op Manage with SS Humalog (5) HTN (hypertension) Comment: Normotensive Lisinopril has been restarted (6) HLD (hyperlipidemia) (7) Hypothyroidism Comment: Cont levothyroxine (8) Lumbar radiculopathy Comment: Cont prn flexeril (9) DVT prophylaxis Comment: Lovenox bridge to Coumadin per ortho Status and Disposition: Discharged by ortho. No acute medical concerns. No changes made to home medications
== END 2017-02-22 11:20 | disposition home health service (06) | DRG 302 ==
LOC: INTOOBSV 02-19 08:27 → AA 02-19 08:27 → SSU 02-19 16:19 → OBSVTOIN 02-20 15:00
PROVIDERS: ADMIT Orthopaedic Surgery; ATTEND Orthopaedic Surgery
PROC: 0SRD0L9 Replacement of Left Knee Joint with Medial Unicondylar Synthetic Substitute, Cemented, Open Approach (ICD-10-PCS; principal; 2017-02-20)
PROC: 0QQF0ZZ Repair Left Patella, Open Approach (ICD-10-PCS; 2017-02-20)
DX: M17.12 Unilateral primary osteoarthritis, left knee (principal); E11.40 Type 2 diabetes mellitus with diabetic neuropathy, unspecified; J44.9 Chronic obstructive pulmonary disease, unspecified; I10 Essential (primary) hypertension; E78.00 Pure hypercholesterolemia, unspecified; M51.27 Other intervertebral disc displacement, lumbosacral region; F17.210 Nicotine dependence, cigarettes, uncomplicated; G89.29 Other chronic pain; M76.9 Unspecified enthesopathy, lower limb, excluding foot; S83.242A Other tear of medial meniscus, current injury, left knee, initial encounter; X58.XXXA Exposure to other specified factors, initial encounter; G47.33 Obstructive sleep apnea (adult) (pediatric); E78.5 Hyperlipidemia, unspecified; E03.9 Hypothyroidism, unspecified; M54.16 Radiculopathy, lumbar region; E66.9 Obesity, unspecified; F32.9 Major depressive disorder, single episode, unspecified; Z90.711 Acquired absence of uterus with remaining cervical stump; Z88.0 Allergy status to penicillin; Z82.49 Family history of ischemic heart disease and other diseases of the circulatory system; Z82.0 Family history of epilepsy and other diseases of the nervous system; Y92.9 Unspecified place or not applicable; Z91.19 Patient's noncompliance with other medical treatment and regimen; Z80.9 Family history of malignant neoplasm, unspecified; Z68.37 Body mass index [BMI] 37.0-37.9, adult; Z79.01 Long term (current) use of anticoagulants
CPT/HCPCS: 36415; 80048; 85014; 85018; 85610; 88305; 88311; 94640; 94760; 99406; A9270-GY; C1776; J1100; J1170; J1200; J1644; J2250; J2270; J2704; J3010

== ENCOUNTER 2018-10-28 06:43 | Inpatient (IN) | payer MEDICARE, MEDICAID ==
[~2018-10-28 06:43] MED LIST: Acetaminophen TAB* 325 MG ONE; Acetaminophen TAB* 325 MG PO ONE; Buffered Lidocaine 0.9% SYRIN* 5 ML/SYR SYRINGE INTRADERM ONE; Clindamycin 900 MG/D5W BAG(*) 900 MG/50 ML BAG IVPB ONE; Famotidine IV* 10 MG/ML 2 ML (20 mg) IV ONE; Famotidine IV* 10 MG/ML 2 ML (20 mg) ONE; Lactated Ringers 1000 ML Bag* 1,000 ML IV SCH; Levalbuterol 0.63MG/3ML NEB* UNIT OF USE INH ONE; celeCOXIB CAP* 200 MG PO ONE
[2018-10-28] MEDS ORDERED: celeCOXIB CAP* 100 MG ONE (06:59)
[2018-10-28] MEDS ORDERED: Midazolam* 1 MG/ML 5 ML VIAL (5 MG) ONE (07:00)
[2018-10-28] MEDS ORDERED: Ondansetron INJ* 2 MG/ML VIAL ONE (07:00)
[2018-10-28] MEDS ORDERED: ROPIVACAINE 5 MG/ML 30 ML BTL (0.5%) ONE (07:00)
[2018-10-28] MEDS ORDERED: Lidocaine 2% PF * 5 ML VIAL ONE ×2 (07:00→08:28)
[2018-10-28] MEDS ORDERED: fentaNYL* 50 MCG/ML 2 ML VIAL (100 MCG VIAL) ONE (07:00)
[2018-10-28] MEDS ORDERED: Propofol* 10 MG/ML 20 ML BTL ONE (07:00)
[2018-10-28] MEDS ORDERED: Dexamethasone IV* 4 MG/ML 1 ML (4 MG) ONE (07:00)
[2018-10-28] MEDS ORDERED: KETAMINE HCL* 50 MG/ML 10 ML VIAL ONE (07:00)
[2018-10-28] MEDS ORDERED: Bupivacaine 0.5% SDV PF* 30ML VIAL ONE (07:05)
[2018-10-28] MEDS ORDERED: Tranexamic Acid 1,000 MG in NS 0.9% 50 ML IV ONE (08:00)
[2018-10-28] MEDS ORDERED: Bupivacaine 0.25% EPI 200,000* 30 ML SDV ONE ×3 (08:25→09:31)
[2018-10-28] MEDS ORDERED: Propofol* 500 MG/50 ML BTL ONE (08:28)
[2018-10-28] MEDS ORDERED: fentaNYL* 50 MCG/ML 2 ML VIAL (100 MCG VIAL) IV PRN (09:39)
[2018-10-28] MEDS ORDERED: Naloxone* 0.4 MG/ML 1 ML VIAL IV PRN (09:39)
[2018-10-28] MEDS ORDERED: Ondansetron INJ* 2 MG/ML VIAL IV PRN ×2 (09:39→10:45)
[2018-10-28] MEDS ORDERED: Levalbuterol 0.63MG/3ML NEB* UNIT OF USE INH PRN (09:43)
[2018-10-28] MEDS ORDERED: Metoprolol Tartrate IV* 1 MG/ML 5 ML VIAL ONE (10:06)
[2018-10-28] MEDS ORDERED: Cyclobenzaprine TAB* 10 MG PO PRN (10:45)
[2018-10-28] MEDS ORDERED: diPHENhydraMINE IV* 50 MG/ML 1 ml VIAL (BENADRYL) IV PRN (10:45)
[2018-10-28] MEDS ORDERED: oxyCODONE/Acetamin 5/325 MG* TAB PO PRN (10:45)
[2018-10-28] MEDS ORDERED: traMADol TAB* 50 MG PO PRN (10:45)
[2018-10-28] MEDS ORDERED: Magnesium Hydroxide LIQ* 30 ML UDC PO PRN (10:45)
[2018-10-28] MEDS ORDERED: diPHENhydraMINE PO* 25 MG PO PRN (10:45)
[2018-10-28] MEDS ORDERED: Levalbuterol 1.25MG/0.5ML NEB ONE (10:47)
[2018-10-28] MEDS ORDERED: Polyethylene Glycol 3350* 17 GM PACKET PO PRN (10:51)
[2018-10-28] MEDS ORDERED: Bisacodyl SUPP* 10 MG SUPP PR PRN (10:51)
[2018-10-28] MEDS ORDERED: Levalbuterol 0.63MG/3ML NEB* UNIT OF USE INH ONE (10:56)
[2018-10-28] MEDS ORDERED: Clindamycin 600 MG IVPREMIX(* 600 MG/50 ML SDV IV SCH (11:00)
[2018-10-28] MEDS ORDERED: Gabapentin TAB(NF) 600 MG PO SCH (13:00)
--- NOTE | 2018-10-28 13:46 | CONSULT ---
Subjective Date of Service: 10/28/18 Interval History: Morenita is a 53 yo female, seen in PACU following left total knee revision. She is sleepy but denies any pain concerns at this time. Able to follow commands. No concerns prior to admission. Family History: Findings - heart disease Social History: Findings - 30 year smoking hx, lives with Past Medical History: Findings - hypothyroidism, DM2, HLD, opioid dependence, nicotine dependence, COPD, depression, anxiety, cervical and lumbar radiculopathy, fibromyalgia, chronic pain, OA - bilateral knees Review of Systems - Measurements Intake and Output: Intake and Output Last 24 Hours 10/26/18 10/27/18 10/28/18 10/29/18 06:59 06:59 06:59 06:59 Intake Total 2200 Output Total 600 Balance 1600 Weight 199 lb Intake: IV Fluids 2200 lr 2200 Output: Ag 550 Estimated Blood Loss 50 - Review of Systems Constitutional Symptoms: Negative: Weakness, Fever, Night Sweats Dermatology: Positive: Normal HEENT: Negative: Sinus Problem Eyes: Negative: Change in Vision, Double Vision Thyroid: Positive: Primary Hypothyroidism Pulmonary: Positive: COPD Negative: Wheezing, Respiratory Distress, Shortness of Breath Cardiology: Negative: Chest Pain, Shortness of Breath, Palpitations Gastroenterology: Negative: Abdominal Pain, Nausea, Vomiting Genital - Urinary: Negative: Dysuria, Hematuria Musculoskeletal: Positive: Joint Pain, Joint Stiffness, Arthritis Endocrinology: Positive: Thyroid Problems, Obesity, Diabetes Mellitus Neurology: Positive: Normal Negative: Headache, Dizziness Psychiatry: Positive: Depression, Anxiety Negative: Suicidal Ideation Objective Active Medications: Acetaminophen (Tylenol Tab*) 975 mg PO ONCE ONE Stop: 10/28/18 06:01 Last Admin: 10/28/18 06:54 Dose: 975 mg Acetaminophen (Tylenol Tab*) 975 mg PO Q8H [facility] Albuterol/Ipratropium (Combivent Respimat(Nf)) puff INH QID [facility]; Protocol Bisacodyl (Dulcolax Supp*) 10 mg CO DAILY PRN PRN Reason: constipation Celecoxib (Celebrex Cap*) 200 mg PO ONCE ONE Stop: 10/28/18 06:01 Last Admin: 10/28/18 07:00 Dose: 200 mg Cyclobenzaprine HCl (Flexeril Tab*) 10 mg PO TID PRN PRN Reason: SPASMS Diphenhydramine HCl (Benadryl Iv*) 25 mg IV Q6H PRN PRN Reason: itching Diphenhydramine HCl (Benadryl Po*) 25 mg PO Q6H PRN PRN Reason: INSOMNIA Docusate Sodium (Colace Cap*) 100 mg PO BID [facility] Famotidine (Pepcid Iv*) 20 mg IV ONCE ONE Stop: 10/28/18 06:01 Last Admin: 10/28/18 06:53 Dose: 20 mg Fentanyl Citrate (Fentanyl*) 50 mcg IV Q5M PRN PRN Reason: PAIN - MODERATE Fluoxetine HCl (Fluoxetine Hcl) 40 mg PO QAM [facility] Gabapentin (Neurontin Tab(Nf)) 600 mg PO QID [facility] Heparin Sodium (Porcine) (Heparin Vial(*)) 5,000 units SUBCUT Q12HR [facility] Lactated Ringer's (Lactated Ringers 1000 Ml Bag*) 1,000 mls @ 125 mls/hr IV PER RATE [facility] Last Admin: 10/28/18 06:53 Dose: 125 mls/hr Clindamycin HCl/Dextrose (Cleocin 600 Mg Ivpremix(*) Sdv) 600 mg in 50 mls @ 100 mls/hr IV Q8H [facility] Stop: 10/29/18 03:29 Lactated Ringer's (Lactated Ringers 1000 Ml Bag*) 1,000 mls @ 100 mls/hr IV PER RATE [facility] Levalbuterol HCl (Xopenex 0.63mg/3ml Neb*) 0.63 mg INH ONCE ONE Stop: 10/28/18 06:01 Last Admin: 10/28/18 07:01 Dose: 0.63 mg Levalbuterol HCl (Xopenex 0.63mg/3ml Neb*) 0.63 mg INH ONCE PRN PRN Reason: SOB/WHEEZING Last Admin: 10/28/18 11:04 Dose: 0.63 mg Lidocaine/Sodium Bicarbonate (Buffered Lidocaine 0.9% Syrin*) 0.2 ml INTRADERM ONCE ONE Stop: 10/28/18 06:01 Last Admin: 10/28/18 06:54 Dose: 1 admin Magnesium Hydroxide (Milk Of Magnesia Liq*) 30 ml PO BID [facility] Magnesium Hydroxide (Milk Of Magnesia Liq*) 30 ml PO Q6H PRN PRN Reason: constipation Metformin HCl (Glucophage*) 1,000 mg PO BID [facility] Morphine Sulfate (Morphine Vial*) 2 mg IV Q2H PRN PRN Reason: PAIN Naloxone HCl (Narcan*) 0.08 mg IV Q2M PRN PRN Reason: severe induced resp depression Non-Formulary Medication (Duloxetine Hcl) 90 mg PO QAM [facility] Non-Formulary Medication (Glipizide [Glucotrol]) 10 mg PO QAM [facility] Non-Formulary Medication (Hydrochlorothiazide Tab*) 12.5 mg PO QAM [facility] Non-Formulary Medication (Levothyroxine Tab*) 50 mcg PO QAM [facility] Non-Formulary Medication (Lisinopril [Prinivil Tab 20 Mg]) 20 mg PO QAM [facility] Nystatin (Nystatin Top Powder*) 1 applic TOPICAL TID [facility] Ondansetron HCl (Zofran Inj*) 4 mg IV ONCE PRN PRN Reason: NAUSEA/VOMITING Ondansetron HCl (Zofran Inj*) 4 mg IV Q6H PRN PRN Reason: nausea Oxycodone HCl (Roxycodone Tab*) 10 mg PO Q4H PRN PRN Reason: moderate to severe pain Oxycodone/Acetaminophen (Percocet 5/325 Tab*) 1 tab PO Q3H PRN PRN Reason: PAIN - MODERATE Oxycodone/Acetaminophen (Percocet 5/325 Tab*) 2 tab PO Q3H PRN PRN Reason: PAIN - MODERATE Polyethylene Glycol/Electrolytes (Miralax*) 17 gm PO DAILY PRN PRN Reason: Constipation Simvastatin (Zocor (Nf)) 40 mg PO QPM [facility] Tizanidine HCl (Zanaflex Tab*) 4 mg PO BEDTIME [facility] Tramadol HCl (Ultram*) 50 mg PO Q6H PRN PRN Reason: PAIN Warfarin Sodium (Coumadin Tab(*)) 6 mg PO ONCE@1700 ONE; Protocol Stop: 10/28/18 17:01 Vital Signs - 8 hr 10/28/18 10/28/18 10/28/18 06:26 10:44 10:45 Temperature 97.9 F 98.1 F Pulse Rate 94 90 89 Respiratory 16 13 Rate Blood Pressure 146/85 121/87 (mmHg) O2 Sat by Pulse 95 95 96 Oximetry 10/28/18 10/28/18 10/28/18 10:50 10:55 11:00 Temperature Pulse Rate 90 90 91 Respiratory 15 16 17 Rate Blood Pressure 141/72 151/71 134/79 (mmHg) O2 Sat by Pulse 92 96 92 Oximetry 10/28/18 10/28/18 10/28/18 11:05 11:10 11:15 Temperature Pulse Rate 91 91 92 Respiratory 15 15 26 Rate Blood Pressure 136/70 145/79 139/72 (mmHg) O2 Sat by Pulse 90 92 91 Oximetry 10/28/18 10/28/18 10/28/18 11:20 11:25 11:30 Temperature Pulse Rate 93 90 92 Respiratory 21 15 14 Rate Blood Pressure 140/70 133/74 146/70 (mmHg) O2 Sat by Pulse 95 91 91 Oximetry 10/28/18 10/28/18 10/28/18 11:40 11:45 12:00 Temperature Pulse Rate 91 92 Respiratory 25 16 Rate Blood Pressure 130/74 139/75 (mmHg) O2 Sat by Pulse 94 94 94 Oximetry 10/28/18 10/28/18 10/28/18 12:16 12:30 12:45 Temperature Pulse Rate 90 90 91 Respiratory 26 17 17 Rate Blood Pressure 142/62 130/77 141/73 (mmHg) O2 Sat by Pulse 96 97 97 Oximetry 10/28/18 10/28/18 13:00 13:15 Temperature Pulse Rate 92 91 Respiratory 20 25 Rate Blood Pressure 129/82 145/77 (mmHg) O2 Sat by Pulse 94 95 Oximetry Oxygen Devices in Use Now: Simple Face Mask Appearance: 53 yo female, lying in bed, in NAD; sleepy Eyes: No Scleral Icterus, PERRLA Ears/Nose/Mouth/Throat: Clear Oropharnyx, Mucous Membranes Moist Neck: NL Appearance and Movements; NL JVP Respiratory: Symmetrical Chest Expansion and Respiratory Effort, Clear to Auscultation - diminished Cardiovascular: NL Sounds; No Murmurs; No JVD, RRR Abdominal: NL Sounds; No Tenderness; No Distention Extremities: No Clubbing, Cyanosis Skin: No Rash or Ulcers Neurological: Alert and Oriented x 3, NL Muscle Strength and Tone Lines/Tubes/Other Access: Clean, Dry and Intact Peripheral IV Nutrition: Taking PO's Assessment/Plan - Billing Morenita is a 53 yo female, admitted today for left total knee revision. Plan By Medical Problem: 1. Left total knee revision - POD #0, POC per ortho. Pain management per ortho and anesthesia. PT/OT per protocol. 2. History of opioid dependence - Hold Zubsolv in the acute postoperative period. Resume when appropriate and to maintain adequate pain control. 3. COPD - continue home inhalers of Breo Ellipta and prn albuterol 4. DM2 - hold home glipizide and metformin. Start Lispro SSI with meals. 5. HTN - currently well controlled. Hold HCTZ in post operative period; resume when stable. Continue lisinopril with hold parameters. 6. Hypothyroidism - continue levothyroxine 50 mcg. 7. HLD - Continue simvastatin. 8. Chronic pain - secondary to fibromyalgia and OA. Continue gabapentin, tizanidine in addition to post op pain regimen VTE PPX: Warfarin per ortho Diet: Consistent carbohydrate diet Code Status: Full code Admission Status and Rationale: Inpatient admission s/p orthopedic surgery. Dispo per ortho. Attending: João Ramirez
[2018-10-28] MEDS ORDERED: Dextrose 50% Syringe 50 ML* 25 GM/50 ML SYRINGE IV PUSH PRN (15:22)
[2018-10-28] MEDS: Nystatin TOP POWDER* 15 GM BTL TOPICAL SCH ×2 (15:26→23:12)
[2018-10-28] MEDS: NFT: Albuterol/Ipratropium RESP(NF) MDI (Combivent Respimat) INH SCH ×3 (15:54→21:48)
[2018-10-28] MEDS: Acetaminophen TAB* 325 MG PO SCH (15:59)
[2018-10-28] MEDS: oxyCODONE/Acetamin 5/325 MG* TAB PO PRN (15:59)
[2018-10-28] MEDS: Morphine VIAL* 4 MG/ML VIAL (1 ml vial) IV PRN ×2 (16:29→22:30)
[2018-10-28] MEDS: Lactated Ringers 1000 ML Bag* 1,000 ML IV SCH (16:33)
[2018-10-28] MEDS: Clindamycin 600 MG IVPREMIX(* 600 MG/50 ML SDV IV SCH (16:36)
[2018-10-28] MEDS: Gabapentin CAP(*) 300 MG PO SCH ×2 (16:38→22:31)
[2018-10-28] MEDS ORDERED: Warfarin TAB(*) 6 MG PO ONE (17:00)
[2018-10-28] MEDS ORDERED: Atorvastatin* 20 MG TAB PO SCH (18:00)
--- NOTE | 2018-10-28 18:37 | PN ---
Hospitalist Progress Note Date of Service: 10/28/18 Morenita seen at request of nursing due to end tidal CO2 of 53-56. Morenita seen sitting on edge of bed, looking through bags. She is alert and oriented and at her baseline. Reports adequate pain control. Denies CP, SOB. She does have a heavy smoking history and known COPD; suspect this may be her baseline or close to it. Okay to reset limits to 58-60 for alarms with close monitoring of respiratory status and orientation overnight.
[2018-10-28] MEDS: Insulin LISPRO* 1 UNITS UNIT SUBCUT SCH (19:19)
[2018-10-28] MEDS ORDERED: metFORMIN* 500 MG TAB PO SCH (21:00)
[2018-10-28] MEDS ORDERED: tiZANidine TAB* 2 MG PO SCH (21:00)
--- NOTE | 2018-10-28 21:47 | OP ---
DATE OF OPERATION: 10/28/18 - ROOM #341 DATE OF : 61 ATTENDING SURGEON: Justin Acevedo MD MANUFACTURING COST ESTIMATOR: Flakita Mccabe RPA ANESTHESIA: Regional, spinal, and sedation. PRE-OP DIAGNOSIS: Osteoarthritis of left knee, status post medial compartment arthroplasty. POST-OP DIAGNOSIS: Osteoarthritis of left knee, status post medial compartment arthroplasty. OPERATIVE PROCEDURE: 1. Removal left medial compartment arthroplasty, femoral and tibial components. 2. Total knee arthroplasty. ESTIMATED BLOOD LOSS: Less than 50 cc. COMPLICATIONS: None. HARDWARE: Allan Persona #4 femur, D tibia,12 mm polyethylene spacer, 32 mm all - polyethylene patellar button. INDICATIONS: Ms. Arguello is 53-year-old female who had undergone a medial compartment arthroplasty approximately 2 years ago. She initially had done well where she had gotten back to activity, but has slowly been having more troubles with left knee pain. X-rays showed slow collapse of the lateral compartment where she was now [id number] with the typical shifting that is seen with osteoarthritis. She also had a very specific effusion. I discussed with her that with getting back to activity, it appears that the remainder of her knee has worn out and revision of the partial knee replacement to a total knee arthroplasty should work well to decrease her pain and improve her function. Risks of surgery such as infection, scar formation, stiffness, DVT, pulmonary embolism, hardware failure and continued pain were some of the risks discussed. She had been declared medically optimized and wished to proceed. Flakita Mccabe was present throughout the case from positioning, approach, removal of the previous arthroplasty, placement of the total knee and then closure. The case could not have been done without an historian research assistant. DESCRIPTION OF PROCEDURE: The patient had a block placed in the holding area and was brought back to the OR. Spinal anesthesia was then introduced. Ag catheter was placed. Tourniquet was placed over the proximal left thigh and was used during the case, so tourniquet time would be 75 minutes. Left knee was prepped and then draped. Esmarch was used to exsanguinate the leg and the tourniquet was raised. Midline incision was made using the old scar and it was extended approximately 1 cm in both directions. Incision was carried down through the skin and subcutaneous scar. She was still fairly well adhered with the soft tissues, but extensor mechanism was exposed and a sharp parapatellar arthrotomy was made. Gush of clear yellowish joint fluid was encountered. Soft tissues were sharply elevated from the medial side of the tibia and remnants of the fat pad were sharply excised. She had additional soft tissue overgrowth on the patella and this also was taken down. It could be seen where she had worn away all the cartilage in the lateral compartment and most of the cartilage under the patella. Osteotome was used to loosen the corners of the femoral component and a Gigli saw was then easily passed. Knee was flexed up and a small osteotome was used to disimpact the posterior condyle, and it could be seen where the femoral condylar piece was now loose. With a little bit of gigling and a little more work with the osteotome, piece came free and almost no additional bone was lost. Femur was then treated like a regular knee replacement. Step drill was used to open the femoral canal, intramedullary guide was placed. This had been set for 4 degrees and no additional millimeters and it appeared a nice cut would be taken. Distal femoral cut was taken and the femur was sized and she sat nicely for a 4. Holes were drilled, but when the 4 cutting block was placed, I did not clear anteriorly and cutting block was moved up by 2 mm. Now, I cleared nicely anteriorly. Anterior and posterior femoral cuts followed by the chamfer cuts were taken. Attention was turned to the tibia. Step drill was used to open the tibial canal, intramedullary guide was placed. Outrigger was placed and adjusted until it would take 2 mm from the one lateral side, and this was then set for just an extra millimeter so as I would come underneath the polyethylene. Alignment guide was double checked and cutting guide was then pinned in its place. Proximal tibial cut was taken and this came right at the interface between the polyethylene and the bone. With levering upwards and removing the tibial cut, the polyethylene piece came out and remainder of the tibial cut was taken out. Beginning with a 10 spacer, it could be seen where the femoral cut, the alignment was off, but the tibial cut was perfect as a drop connie came right along the anterior spinal tibia and pointed towards the base of the second metatarsal. She did have, however, went to collapse into the valgus where the femoral cut was taken. Additional 2 to 3 mm was taken from the femoral side and then levelled over and now the 12 block, she seemed to sit quite nicely. There was just a tiny bit of wobble which I tend to like so that the knee is not too tight. Tibia was sized and D sat very nicely. A little bit of cement was drilled on the medial plateau and proximal tibia was then drilled and then punched. The femur was then placed and a notch cut was finished and drill holes were drilled. Tibia with initially a 10 was placed and it could be seen how she was a little loose, but with a 12, tightened up nicely. She came out nicely until full extension and easily flexed to a 120 degrees. Patellar tracking was fine even without the prosthesis. Patella cut had been taken early and patella was measured and a 32 sat very nicely. Holes were drilled and trial was snapped into place. Patellar tracking was still fine. Trial instrumentation was removed and the knee was copiously pulse lavaged. Cement was being prepared. Tibia followed by femur and patella were all cemented into place. Once the cement had hardened, knee was searched for additional cement and quite a bit was found as quite a bit had extruded out. Tourniquet was at 75 minutes and tourniquet was let down at this point. The knee was again copiously pulse lavaged and 12 [address] was snapped into place. Knee was again pulse lavaged and parapatellar arthrotomy was repaired using interrupted #1 Vicryl sutures. Subcutaneous tissues were reapproximated using 2-0 Vicryl, skin was closed using jesse. Sterile dressing and a Cryo/Cuff were applied in the OR. The patient was then awakened, stable, and transferred to the recovery room. [id number]/[facility] #: [id number] [place]
[2018-10-28] MEDS: Magnesium Hydroxide LIQ* 30 ML UDC PO SCH (22:30)
[2018-10-28] MEDS: Docusate CAP* 100 MG PO SCH (22:31)
[2018-10-29] MEDS: Clindamycin 600 MG IVPREMIX(* 600 MG/50 ML SDV IV SCH ×2 (00:12→08:54)
[2018-10-29] MEDS: Lactated Ringers 1000 ML Bag* 1,000 ML IV SCH (00:12)
[2018-10-29] MEDS: Acetaminophen TAB* 325 MG PO SCH ×2 (00:42→08:53)
[2018-10-29] MEDS ORDERED: Albuterol HFA INHALER* 8 gm MDI INH PRN (01:19)
[2018-10-29] MEDS: oxyCODONE TAB* 5 MG TAB PO PRN ×2 (04:33→10:05)
[2018-10-29] MEDS: Morphine VIAL* 4 MG/ML VIAL (1 ml vial) IV PRN ×2 (04:33→08:17)
[2018-10-29] MEDS ORDERED: Levothyroxine TAB* 50 MCG TAB PO SCH (06:00)
[2018-10-29 06:06] LABS: Hematocrit 39 % (35-47); Hemoglobin 12.5 g/dl (12.0-16.0); Mean Platelet Volume 7.7 fL (7.4-10.4); Platelet Count 246 10^3/ul (150-450)
[2018-10-29 06:13] LABS: INR 1.04 (0.77-1.02)
[2018-10-29 06:22] LABS: BUN/Creatinine Ratio 39.2 (8-20); Calcium 8.9 mg/dL (8.6-10.3); EGFR Non-African American 125.2 (>60); Potassium 4.8 mmol/L (3.5-5.0)
[2018-10-29] MEDS: NFT: Albuterol/Ipratropium RESP(NF) MDI (Combivent Respimat) INH SCH ×2 (07:52→13:42)
[2018-10-29] MEDS: oxyCODONE/Acetamin 5/325 MG* TAB PO PRN ×2 (08:19→12:23)
[2018-10-29] MEDS: Docusate CAP* 100 MG PO SCH (08:54)
[2018-10-29] MEDS: Magnesium Hydroxide LIQ* 30 ML UDC PO SCH (08:54)
[2018-10-29] MEDS: Gabapentin CAP(*) 300 MG PO SCH (08:55)
[2018-10-29] MEDS: Nystatin TOP POWDER* 15 GM BTL TOPICAL SCH (08:57)
[2018-10-29] MEDS ORDERED: Heparin VIAL(*) 5000 UNITS/ML VIAL (FIVE THOUSAND) SUBCUT SCH (09:00)
[2018-10-29] MEDS ORDERED: Lisinopril TAB* 10 MG PO SCH (09:00)
[2018-10-29] MEDS ORDERED: Fluticasone/Vilanterol MDI(NF) 100/25 MDI INH SCH (09:00)
[2018-10-29] MEDS ORDERED: DULoxetine DR CAP* 30 MG CAP.DR PO SCH (09:00)
[2018-10-29] MEDS ORDERED: FLUoxetine CAP* 20 MG PO SCH (09:00)
[2018-10-29] MEDS ORDERED: GLIPIZIDE 10 MG PO SCH (09:00)
[2018-10-29] MEDS ORDERED: HYDROCHLOROTHIAZIDE 12.5 MG PO SCH (09:00)
[2018-10-29] MEDS ORDERED: NON FORMULARY MED* (Lisinopril [Prinivil Tab 20 Mg] 20 MG) PO SCH (09:00)
[2018-10-29] MEDS: Insulin LISPRO* 1 UNITS UNIT SUBCUT SCH ×2 (09:42→12:00)
[2018-10-29 11:55] VITALS: BP 126/57
--- NOTE | 2018-10-29 13:04 | CONSULT ---
Subjective Date of Service: 10/29/18 Interval History: Morenita is seen sitting up in chair, in room with . She is in good spirits. Reports adequate pain control. Worked with PT, hopeful to go home today. Denies fever/chills, CP, SOB, or other acute concern. Family History: Findings - heart disease Social History: Findings - 30 year smoking hx, lives with Past Medical History: Findings - hypothyroidism, DM2, HLD, opioid dependence, nicotine dependence, COPD, depression, anxiety, cervical and lumbar radiculopathy, fibromyalgia, chronic pain, OA - bilateral knees Review of Systems - Measurements Intake and Output: Intake and Output Last 24 Hours 10/27/18 10/28/18 10/29/18 10/30/18 06:59 06:59 06:59 06:59 Intake Total 3345 1230 Output Total 3350 600 Balance -5 630 Weight 199 lb Intake: IV Fluids 2865 870 ABX - CLINDAMYCIN 105 LR 665 765 lr 2200 Oral 480 360 Output: Urine 600 Ag 3300 Estimated Blood Loss 50 - Review of Systems Constitutional Symptoms: Negative: Weakness, Fatigue, Night Sweats Dermatology: Positive: Normal HEENT: Positive: Normal Eyes: Positive: Normal Thyroid: Positive: Primary Hypothyroidism Pulmonary: Positive: COPD Negative: Cough, Wheezing, Respiratory Distress, Shortness of Breath Cardiology: Negative: Chest Pain, Shortness of Breath, Palpitations Gastroenterology: Negative: Abdominal Pain, Nausea, Vomiting Genital - Urinary: Negative: Dysuria, Hematuria Neurology: Negative: Headache, Dizziness Objective Active Medications: Acetaminophen (Tylenol Tab*) 975 mg PO Q8H [facility] Last Admin: 10/29/18 08:53 Dose: Not Given Albuterol (Ventolin Hfa Inhaler*) 2 puff INH Q2H PRN PRN Reason: SOB/WHEEZING Last Admin: 10/29/18 07:50 Dose: 2 puff Albuterol/Ipratropium (Combivent Respimat(Nf)) 1 puff INH QID [facility]; Protocol Last Admin: 10/29/18 07:52 Dose: Not Given Atorvastatin Calcium (Lipitor*) 20 mg PO QPM [facility] Last Admin: 10/28/18 19:41 Dose: 20 mg Bisacodyl (Dulcolax Supp*) 10 mg LA DAILY PRN PRN Reason: constipation Cyclobenzaprine HCl (Flexeril Tab*) 10 mg PO TID PRN PRN Reason: SPASMS Dextrose (D50w Syringe 50 Ml*) 12.5 gm IV PUSH .FOR FS < 60 - SS PRN PRN Reason: FS < 60 Diphenhydramine HCl (Benadryl Iv*) 25 mg IV Q6H PRN PRN Reason: itching Diphenhydramine HCl (Benadryl Po*) 25 mg PO Q6H PRN PRN Reason: INSOMNIA Docusate Sodium (Colace Cap*) 100 mg PO BID [facility] Last Admin: 10/29/18 08:54 Dose: 100 mg Duloxetine HCl (Cymbalta Cap*) 90 mg PO QAM [facility] Last Admin: 10/29/18 08:56 Dose: 90 mg Fluoxetine HCl (Prozac Cap*) 40 mg PO QAM [facility] Last Admin: 10/29/18 08:56 Dose: 40 mg Fluticasone/Vilanterol (Breo Ellipta Mdi 100/25(Nf)) 1 puff INH DAILY [facility] Last Admin: 10/29/18 09:16 Dose: 1 puff Gabapentin (Neurontin Cap(*)) 600 mg PO QID [facility] Last Admin: 10/29/18 08:55 Dose: 600 mg Heparin Sodium (Porcine) (Heparin Vial(*)) 5,000 units SUBCUT Q12HR [facility] Last Admin: 10/29/18 08:56 Dose: 5,000 units Lactated Ringer's (Lactated Ringers 1000 Ml Bag*) 1,000 mls @ 100 mls/hr IV PER RATE [facility] Last Admin: 10/29/18 00:12 Dose: 100 mls/hr Insulin Human Lispro (Humalog*) 0 units SUBCUT AC [facility]; Protocol Last Admin: 10/29/18 12:00 Dose: 6 units Levothyroxine Sodium (Synthroid Tab*) 50 mcg PO DAILY@0600 [facility] Last Admin: 10/29/18 05:53 Dose: 50 mcg Lisinopril (Prinivil Tab*) 20 mg PO QAM [facility] Last Admin: 10/29/18 08:55 Dose: 20 mg Magnesium Hydroxide (Milk Of Magnesia Liq*) 30 ml PO BID [facility] Last Admin: 10/29/18 08:54 Dose: 30 ml Magnesium Hydroxide (Milk Of Magnesia Liq*) 30 ml PO Q6H PRN PRN Reason: constipation Morphine Sulfate (Morphine Vial*) 2 mg IV Q2H PRN PRN Reason: PAIN Last Admin: 10/29/18 08:17 Dose: 2 mg Nystatin (Nystatin Top Powder*) 1 applic TOPICAL TID [facility] Last Admin: 10/29/18 08:57 Dose: 1 applic Ondansetron HCl (Zofran Inj*) 4 mg IV Q6H PRN PRN Reason: nausea Oxycodone HCl (Roxycodone Tab*) 10 mg PO Q4H PRN PRN Reason: moderate to severe pain Last Admin: 10/29/18 10:05 Dose: 10 mg Oxycodone/Acetaminophen (Percocet 5/325 Tab*) 1 tab PO Q3H PRN PRN Reason: PAIN - MODERATE Oxycodone/Acetaminophen (Percocet 5/325 Tab*) 2 tab PO Q3H PRN PRN Reason: PAIN - MODERATE Last Admin: 10/29/18 12:23 Dose: 2 tab Polyethylene Glycol/Electrolytes (Miralax*) 17 gm PO DAILY PRN PRN Reason: Constipation Tizanidine HCl (Zanaflex Tab*) 4 mg PO BEDTIME [facility] Last Admin: 10/28/18 23:12 Dose: 4 mg Tramadol HCl (Ultram*) 50 mg PO Q6H PRN PRN Reason: PAIN Last Admin: 10/29/18 12:02 Dose: 50 mg Vital Signs - 8 hr 10/29/18 10/29/18 10/29/18 05:53 05:54 07:26 Temperature 97.5 F Pulse Rate 66 Respiratory 16 16 20 Rate Blood Pressure 137/82 (mmHg) O2 Sat by Pulse 100 Oximetry 10/29/18 10/29/18 10/29/18 08:00 08:17 08:19 Temperature Pulse Rate Respiratory 18 16 16 Rate Blood Pressure (mmHg) O2 Sat by Pulse 100 Oximetry 10/29/18 10/29/18 10/29/18 08:55 10:05 11:14 Temperature 98.3 F Pulse Rate 71 Respiratory 16 18 20 Rate Blood Pressure 126/57 (mmHg) O2 Sat by Pulse 99 Oximetry 10/29/18 10/29/18 12:02 12:23 Temperature Pulse Rate Respiratory 18 18 Rate Blood Pressure (mmHg) O2 Sat by Pulse Oximetry Oxygen Devices in Use Now: Nasal Cannula Appearance: 53 yo female, OOB to chair, NAD Eyes: No Scleral Icterus, PERRLA Ears/Nose/Mouth/Throat: Clear Oropharnyx, Mucous Membranes Moist Neck: NL Appearance and Movements; NL JVP Respiratory: Symmetrical Chest Expansion and Respiratory Effort, Clear to Auscultation - diminished Cardiovascular: NL Sounds; No Murmurs; No JVD, RRR Abdominal: NL Sounds; No Tenderness; No Distention Extremities: No Clubbing, Cyanosis, - - left knee with dressing, distal edema noted. Brisk cap refill bilaterally, DP intact Neurological: Alert and Oriented x 3, NL Muscle Strength and Tone Lines/Tubes/Other Access: Clean, Dry and Intact Peripheral IV Nutrition: Taking PO's Result Diagrams: 10/29/18 05:38 10/29/18 05:38 Assessment/Plan - Billing Morenita is a 53 yo female, POD #1 for left total knee revision. Plan By Medical Problem: 1. Left total knee revision - POD #1, POC per ortho. Pain management per ortho and anesthesia. PT/OT per protocol. 2. History of opioid dependence - Hold Zubsolv in the acute postoperative period. Resume when appropriate and to maintain adequate pain control. 3. COPD - continue home inhalers of Breo Ellipta and prn albuterol 4. DM2 - hold home glipizide and metformin. Start Lispro SSI with meals. Resume oral hypoglycemics upon discharge. 5. HTN - currently well controlled. Hold HCTZ in post operative period; resume when stable. Continue lisinopril with hold parameters. 6. Hypothyroidism - continue levothyroxine 50 mcg. 7. HLD - Continue simvastatin. 8. Chronic pain - secondary to fibromyalgia and OA. Continue gabapentin, tizanidine in addition to post op pain regimen VTE PPX: Warfarin per ortho Diet: Consistent carbohydrate diet Code Status: Full code Admission Status and Rationale: Inpatient admission s/p orthopedic surgery. Dispo per ortho. Attending: Corine Hurtado
--- NOTE | 2018-10-29 13:35 | PN ---
Progress Note - Progress Note Date of Service: 10/29/18 SOAP: Subjective: [Doing well. Denies SOB, CP, dizziness. Pain managed. Wants to go home.] Objective: [A and O x 3. Dressing C/D/I Incision benign calf soft NT gross motor/NV function intact Vital Signs: Temp Pulse Resp BP Pulse Ox 98.3 F 71 18 126/57 99 10/29/18 11:14 10/29/18 11:14 10/29/18 12:23 10/29/18 11:14 10/29/18 11:14 Laboratory Results - last 24 hr 10/28/18 10/29/18 10/29/18 17:30 05:38 05:38 Hgb 12.5 Hct 39 Plt Count 246 MPV 7.7 INR (Anticoag Therapy) 1.04 H Sodium Potassium Chloride Carbon Dioxide Anion Gap BUN Creatinine Est GFR ( Amer) Est GFR (Non-Af Amer) BUN/Creatinine Ratio Glucose POC Glucose (mg/dL) 261 H Calcium 10/29/18 10/29/18 05:38 11:49 Hgb Hct Plt Count MPV INR (Anticoag Therapy) Sodium 134 L Potassium 4.8 Chloride 98 L Carbon Dioxide 32 Anion Gap 4 BUN 20 Creatinine 0.51 Est GFR ( Amer) 151.5 Est GFR (Non-Af Amer) 125.2 BUN/Creatinine Ratio 39.2 H Glucose 140 H POC Glucose (mg/dL) 243 H Calcium 8.9 ] Assessment: [s/p revision LTKA POD #2] Plan: [D/C home Lovenox 6 mg tonight Scripts for Lovenos, Coumadin sent to [facility]]
--- NOTE | 2018-10-30 15:29 | DS ---
DISCHARGE SUMMARY: DATE OF ADMISSION: 10/28/18 DATE OF DISCHARGE: 10/29/18 PROVIDER: Justin Acevedo MD * (DICTATED BY JEFF TREVIÑO) ADMITTING PHYSICIAN: Dr. Acevedo ADMITTING DIAGNOSES: 1. Left knee progression of osteoarthritis, status post medial compartment arthroplasty. 2. Hypertension. 3. Hypercholesterolemia. 4. Hypothyroidism. 5. Diabetes. DISCHARGE DIAGNOSES: 1. Status post left total knee arthroplasty. 2. Hypertension. 3. Hypercholesterolemia. 4. Hypothyroidism. 5. Diabetes. PROCEDURE: 1. Left total knee arthroplasty. CONSULTANTS: 1. Physical Therapy. 2. Occupational Therapy. BRIEF HISTORY: Ms. Jonas is a 53-year-old female with progression to severe degenerative osteoarthritis of the left knee. She had undergone a left knee medial compartment arthroplasty with a Repicci implant years ago and had done well postoperatively. Unfortunately, pain and swelling in the knee progressed recently and updated x-rays found her to have a collapse at the outer side of the knee that was down to bone on bone. She failed conservative treatment measures and elected to undergo a left total knee arthroplasty on 10/28/[address] Acevedo. HOSPITAL COURSE: Ms. Jonas was admitted to [facility] on . She underwent an uncomplicated left total knee arthroplasty. Postoperatively, she recovered on the short stay surgical unit. Her Ag catheter was removed on postoperative day #1, and she was able to urinate on her own. She advanced to her regular diet without difficulty. Her pain was well controlled with Percocet. Her vital signs and labs remained stable. She was able to bear weight as tolerated on the left lower extremity. The evening of her surgery and on postop day #1, she advanced appropriately with physical therapy and occupational therapy. Her DVT prophylaxis was bridged with Lovenox and Coumadin. By postoperative day #1, she was orthopedically and medically stable for discharge to home with services. PHYSICAL EXAMINATION: General: On exam, the patient is noted to be calm and cooperative, in no acute distress. She is alert and oriented x3. Vital Signs: On the day of discharge, temperature 98.3 degrees Fahrenheit, pulse rate 73, respiration rate 20, O2 sat 99% on room air, blood pressure 126/57. Extremities : Examination of the left lower extremity demonstrates a dressing overlying the left knee which is clean, dry, and intact. Her calf is soft and nontender. Distally, she has +2 palpable DP pulse, 5/5 ankle dorsiflexion and plantarflexion, and sensation is intact to light touch. LABORATORY DATA: On the day of discharge, hemoglobin 12.5, hematocrit 39. INR 1.04. RADIOGRAPH: Postoperative radiograph of the left knee demonstrates a left total knee arthroplasty with satisfactory prosthesis placement and no acute bony abnormalities. DISCHARGE MEDICATIONS: 1. Lisinopril 20 mg daily. 2. Glipizide 10 mg daily. 3. Simvastatin 40 mg daily. 4. Levothyroxine sodium 100 mcg daily. 5. Gabapentin 600 mg q.i.d. 6. Cymbalta 20 mg daily. 7. Fluoxetine HCL 40 mg daily. 8. Metformin HCL 1000 mg daily. 9. Coumadin 2 mg tablets to be taken as directed. The patient will take 6 mg on day of discharge, 10/29/18, and 4 mg on 10/30/18. She will have her blood redrawn on . 10. Percocet 5/325 mg 1 to 2 tabs p.o. q.4 to 6 hours p.r.n. pain. 11. Colace 100 mg p.o. t.i.d. p.r.n. constipation. CONDITION ON DISCHARGE: Stable. DISCHARGE INSTRUCTIONS: Ms. Jonas is a 53-year-old female, postoperative day #1, status post left total knee arthroplasty which was uncomplicated. She is orthopedically and medically stable to be discharged home with services as she has stable vital signs and labs. She will take 6 mg of Coumadin on Sunday and 4 mg on Sunday and 4 mg on Sunday. She will have her INR redrawn on , 10/31/18, that will happen with visiting nurse services. She will remain weightbearing as tolerated on the left lower extremity and have home physical therapy twice a day. She will use Percocet for pain control and Colace up to 3 times a day for constipation. She will follow up with Dr. Acevedo in office in 14 days for incision check and suture/staple removal. She was instructed to call Dr. Acevedo or go immediately to the ER should she develop any new fevers, chills, incision pain, redness, or drainage. She was instructed to go immediately to the ER, should she develop chest pain or shortness of breath. JEFF TREVIÑO [id number]/[facility] #: [id number] [facility]ENTERFrank
== END 2018-10-29 14:17 | disposition home health service (06) | DRG 470 ==
LOC: AA 06:43 → SSU 10:45
PROVIDERS: ADMIT Orthopaedic Surgery; ATTEND Orthopaedic Surgery
PROC: 0SRD0J9 Replacement of Left Knee Joint with Synthetic Substitute, Cemented, Open Approach (ICD-10-PCS; principal; 2018-10-28 07:30)
DX: M17.0 Bilateral primary osteoarthritis of knee (principal); F11.20 Opioid dependence, uncomplicated; E03.9 Hypothyroidism, unspecified; E11.9 Type 2 diabetes mellitus without complications; E78.5 Hyperlipidemia, unspecified; F17.210 Nicotine dependence, cigarettes, uncomplicated; J44.9 Chronic obstructive pulmonary disease, unspecified; F32.9 Major depressive disorder, single episode, unspecified; F41.9 Anxiety disorder, unspecified; M54.12 Radiculopathy, cervical region; M54.16 Radiculopathy, lumbar region; M79.7 Fibromyalgia; G89.29 Other chronic pain; Z79.84 Long term (current) use of oral hypoglycemic drugs; Z79.1 Long term (current) use of non-steroidal anti-inflammatories (NSAID); Z79.899 Other long term (current) drug therapy; Z88.0 Allergy status to penicillin
CPT/HCPCS: 36415; 80048; 85014; 85018; 85049; 85610; 94640; A9270-GY; C1776; G8978-GP-CJ; G8979-GP-CI; J1100; J1644; J2250; J2270; J2405; J2704; J2795; J3010; J3490

== ENCOUNTER 2018-11-04 17:18 | Emergency (ER) | payer MEDICARE, MEDICAID ==
--- NOTE | 2018-11-04 17:28 | ED ---
Lower Extremity - HPI Summary HPI Summary: A 53 y/o female brought in by [place] ambulance presents to [facility] with a chief complaint of left knee pain since 16:00 11/04/18. At 16:00 her knee gave out, she heard a snap, and needed help from her son to get back up. She rates her pain as 9/10. She also c/o left leg edema. She has a SHx of a partial knee replacement 1.5 years [employer], and a full knee replacement by Dr. Acevedo on . She takes metformin BID for DM. She is concerned to ambulate due to her pain. She denies Fever, Chills, Erythema (eyes), Sore throat, Chest pain, Shortness of Breath, Cough, Abdominal pain, Vomiting, Nausea, Dysuria, Hematuria , Rash and Dizziness. - History of Current Complaint Stated Complaint: LT KNEE PAIN Hx Obtained From: Patient, EMS Mechanism Of Injury: Other - "knee gave out" and heard a pop Onset of Pain: Immediate, Post Accident, Prior to Arrival Onset/Duration: Hours Severity Initially: Severe Severity Currently: Severe Pain Intensity: 9 Pain Scale Used: 0-10 Numeric Timing: Constant, Lasting Hours Location: Is Discrete @ - left knee Character Of Pain: Unable To Describe Associated Signs And Symptoms: Positive: Swelling Aggravating Factor(s): Weight Bearing Alleviating Factor(s): Rest - Allergies/Home Medications Allergies/Adverse Reactions: Allergies Allergy/AdvReac Type Severity Reaction Status Date / Time bee venom protein (honey bee) Allergy Hives Verified 11/04/18 17:24 Penicillins Allergy lungs fill Verified 11/04/18 17:24 with fluid Home Medications: Home Medications DULoxetine CAP* [Cymbalta CAP*] 20 mg PO DAILY 11/04/18 [History Confirmed ] FLUoxetine CAP* [PROzac CAP*] 40 mg PO DAILY 11/04/18 [History Confirmed ] Gabapentin TAB(NF) [Neurontin 600 mg TAB(NF)] 600 mg PO QID 11/04/18 [History Confirmed 11/04/18] Levothyroxine TAB* [Synthroid TAB*] 100 mcg PO DAILY 11/04/18 [History Confirmed 11/04/18] Lisinopril TAB* [Prinivil TAB*] 20 mg PO DAILY 11/04/18 [History Confirmed 11/04] Simvastatin (NF) [Zocor (NF)] 40 mg PO DAILY 11/04/18 [History Confirmed ] glipiZIDE TAB* [Glucotrol TAB*] 10 mg PO DAILY 11/04/18 [History Confirmed 11/04] oxyCODONE/Acetamin 5/325 MG* [Percocet 5/325 TAB*] 1 - 2 tab PO Q4H PRN [History Confirmed 11/04/18] PMH/Surg Hx/FS Hx/Imm Hx Endocrine/Hematology History: Reports: Hx Diabetes, Hx Thyroid Disease Cardiovascular History: Reports: Hx Hypertension Denies: Other Cardiovascular Problems/Disorders Respiratory History: Reports: Hx Asthma, Hx Chronic Obstructive Pulmonary Disease (COPD), Hx Sleep Apnea GI History: Reports: Hx Gastroesophageal Reflux Disease Denies: Other GI Disorders Musculoskeletal History: Reports: Hx Arthritis, Hx Bursitis - left knee and hip - received injection couple months ago Denies: Other Musculoskeletal History Sensory History: Reports: Hx Contacts or Glasses Denies: Hx Hearing Aid Opthamlomology History: Reports: Hx Contacts or Glasses Neurological History: Reports: Hx Nerve Disease - neuropathy Denies: Hx Headaches Psychiatric History: Reports: Hx Anxiety, Hx Depression Denies: Other Psychiatric Issues/Disorders - Surgical History Surgery Procedure, Year, and Place: c-sections x2. partial hysterectomy. tonsils and adenoids removed 1999 Hx Anesthesia Reactions: No Infectious Disease History: Denies: History Other Infectious Disease - Family History Known Family History: Positive: Hypertension Negative: Diabetes - Social History Alcohol Use: None Substance Use Type: Reports: None Smoking Status (MU): Current Every Day Smoker Type: Cigarettes Amount Used/How Often: 1ppd 40 years Length of Time of Smoking/Using Tobacco: 30 + years Have You Smoked in the Last Year: Yes Review of Systems Negative: Fever, Chills Negative: Erythema Negative: Sore Throat Negative: Chest Pain Negative: Shortness Of Breath, Cough Negative: Abdominal Pain, Vomiting, Nausea Negative: dysuria, hematuria Positive: Myalgia - left knee pain, Edema Neurological: Negative - dizziness All Other Systems Reviewed And Are Negative: Yes Physical Exam - Summary Physical Exam Summary: Constitutional: Well-developed, Well-nourished, Alert. (-) Distressed Skin: Warm, Dry HENT: Normocephalic; Atraumatic Eyes: Conjunctiva normal Neck: Musculoskeletal ROM normal neck. (-) JVD, (-) Stridor, (-) Tracheal deviation Cardio: Rhythm regular, rate normal, Heart sounds normal; Intact distal pulses; The pedal pulses are 2+ and symmetric. Radial pulses are 2+ and symmetric. (-) Murmur Pulmonary/Chest wall: Effort normal. (-) Respiratory distress, (-) Wheezes, (-) Rales Abd: Soft, (-) epigastric tenderness, (-) Distension, (-) Guarding, (-) Rebound Musculoskeletal: left knee mildly swollen, jesse intact clean and dry, no erythema, able to flex foot dorsal and plantar. Suspicion or patellar tendon rupture. Lymph: (-) Cervical adenopathy Neuro: Alert, Oriented x3 Psych: Mood and affect Normal Triage Information Reviewed: Yes Vital Signs Reviewed: Yes Diagnostics - Laboratory Lab Statement: Any lab studies that have been ordered have been reviewed, and results considered in the medical decision making process. - Radiology left knee x-ray Radiology Interpretation Completed By: ED Physician Summary of Radiographic Findings: Question a distal medial femur fracture and also a patellar tendon rupture. Pending official radiology report. Re-Evaluation - Re-Evaluation First Eval Re-Evaluation Time: 18:55 Change: Improved Comment: Patient is ready for discharge. Lower Extremity Course/Dx - Course Course Of Treatment: A 53 y/o female brought in by [place] ambulance presents to [facility] with a chief complaint of left knee pain since 16:00 11/04/18.Her physical exam revealed: left knee mildly swollen, jesse intact clean and dry, no erythema, able to flex foot dorsal and plantar. Suspicion or patellar tendon fracture. Viewing her left knee x-ray I question a distal medial femur fracture and also a patellar tendon rupture. After discussing the case with shreya Valadez, she recommends knee immobilizer and follow up with Dr. Acevedo on . She will be discharged with a prescription for Percocet, was instructed to follow up with shreya Rod, and given strict return precautions. She is agreeable with this plan. - Diagnoses Provider Diagnoses: Patellar tendon rupture, Knee pain - Physician Notifications Discussed Care Of Patient With: Ana North Time Discussed With Above Provider: 18:35 Instructed by Provider To: Other - Recommends knee immobilizer and follow up with Dr. Hinds on 11/05/18 Discharge - Sign-Out/Discharge Documenting (check all that apply): Patient Departure - DC - Discharge Plan Condition: Stable Disposition: HOME Prescriptions: oxyCODONE/Acetamin 5/325 MG* [Percocet 5/325 TAB*] 1 tab PO Q6H PRN #8 tab MDD 4 PRN Reason: Pain - Moderate To Severe Patient Education Materials: Crutch Instructions (ED) Referrals: Margie Velázquez NP [Primary Care Provider] - (2-3 days) Justin Acevedo MD [Medical Doctor] - Additional Instructions: RETURN TO THE EMERGENCY DEPARTMENT FOR CHANGING OR WORSENING SYMPTOMS - Billing Disposition and Condition Condition: STABLE Disposition: Home - Attestation Statements Document Initiated by Eberibe: Yes Documenting Scribe: Claudio Townsend Provider For Whom Eberibe is Documenting (Include Credential): Stewart Lara MD Scribe Attestation: Claudio Mcdowell, scribed for Stewart Lara MD on 11/07/18 at 1809. Scribe Documentation Reviewed: Yes Provider Attestation: The documentation as recorded by the Claudio rubio accurately reflects the service I personally performed and the decisions made by , Stewart Lara MD Status of Scribe Document: Viewed
[2018-11-04] MEDS ORDERED: oxyCODONE/Acetamin 5/325 MG* TAB PO ONE ×2 (17:42→18:56)
[2018-11-04 19:30] VITALS: BP 150/80
== END 2018-11-04 20:06 | disposition home or self-care (01) ==
LOC: ED 17:18
DX: S76.112A Strain of left quadriceps muscle, fascia and tendon, initial encounter (principal); M25.562 Pain in left knee; F17.210 Nicotine dependence, cigarettes, uncomplicated; E11.8 Type 2 diabetes mellitus with unspecified complications; E07.9 Disorder of thyroid, unspecified; I10 Essential (primary) hypertension; J44.9 Chronic obstructive pulmonary disease, unspecified; F32.9 Major depressive disorder, single episode, unspecified; F41.9 Anxiety disorder, unspecified; Z79.84 Long term (current) use of oral hypoglycemic drugs; Z88.0 Allergy status to penicillin
CPT/HCPCS: 99283; A9270-GY